=== PATIENT | male | born 1980 | race American Indian/Alaskan Native ===

== ENCOUNTER 2019-02-21 12:53 | Inpatient (IN) | payer OTHER ==
--- NOTE | 2019-02-21 13:14 | Event Note ---
ED Screening Note Date of service: 02/21/19 Time: 13:12 ED Screening Note: 39 y/o male comes in for RLQ pain and tenderness. This initial assessment/diagnostic orders/clinical plan/treatment(s) is/are subject to change based on patients health status, clinical progression and re- assessment by fellow clinical providers in the ED. Further treatment and workup at subsequent clinical providers discretion. Patient/guardian urged not to elope from the ED as their condition may be serious if not clinically assessed and managed. Initial orders include:
[2019-02-21 13:30] LABS: Basophils # (Auto) 0.1 K/mm3 (0.0-0.1); Basophils % (Auto) 0.9 % (0.0-1.8); Eosinophils # (Auto) 0.2 K/mm3 (0.0-0.4); Eosinophils % (Auto) 2.5 % (0.0-4.3); Hematocrit 40.8 % (35.5-45.6); Lymphocytes # (Auto) 1.5 K/mm3 (1.2-5.4); Lymphocytes % (Auto) 16.8 % (13.4-35.0); Mean Corpuscular HGB Conc 34 % (32-34); Mean Corpuscular Volume 83 fl (84-94); Monocytes # (Auto) 1.1 K/mm3 (0.0-0.8); Monocytes % (Auto) 12.8 % (0.0-7.3); Platelet Count 239 K/mm3 (140-440); Red Blood Count 4.93 M/mm3 (3.65-5.03); Red Cell Distribution Width 13.9 % (13.2-15.2)
[2019-02-21 13:38] LABS: Bilirubin,Urine NEG (Negative); Blood,Urine NEG (Negative); Color,Urine Yellow (Yellow); Mucus,Urine FEW /HPF; Protein,Urine <15 mg/dL mg/dL (Negative); Urobilinogen,Urine < 2.0 mg/dL (<2.0)
[2019-02-21 13:53] LABS: Alanine Aminotransferase 20 units/L (7-56); Albumin 4.2 g/dL (3.9-5); BUN/Creatinine Ratio 12; Blood Urea Nitrogen 11 mg/dL (9-20); Calcium 8.8 mg/dL (8.4-10.2); Hemolysis Index 23
--- NOTE | 2019-02-21 16:38 | Cat Scan Report ---
CT ABDOMEN AND PELVIS WITH CONTRAST INDICATION / CLINICAL INFORMATION: Right lower quadrant pain. TECHNIQUE: Axial CT images were obtained through the abdomen and pelvis after 100 mL Omnipaque [address] scans at this location are performed using CT dose reduction for ALARA by means of automated exposure control. COMPARISON: None available. FINDINGS: LOWER CHEST: No significant abnormality. LIVER: No significant abnormality. GALLBLADDER: No significant abnormality. BILE DUCTS: No significant abnormality. PANCREAS: No significant abnormality. SPLEEN: No significant abnormality. ADRENALS: No significant abnormality. RIGHT KIDNEY and URETER: No significant abnormality. LEFT KIDNEY and URETER: No significant abnormality. STOMACH and SMALL BOWEL: No significant abnormality. COLON: No significant abnormality. APPENDIX: Markedly dilated appendix with periappendiceal inflammatory stranding and fluid. At the tip , there is a thick-walled fluid collection with diameter 1.6 cm suggestive of contained perforation/a bscess. The more proximal appendix measures 1.2 cm. No extension of the process into the right psoas muscle. A few mildly prominent, reactive lymph nodes are seen in the area. No free gas is seen. LYMPH NODES: Reactive nodes in the right lower quadrant. No other lymphadenopathy. AORTA and ARTERIES: No significant abnormality. IVC and VEINS: No significant abnormality. URINARY BLADDER: No significant abnormality. REPRODUCTIVE ORGANS: No significant abnormality. ADDITIONAL FINDINGS: None. SKELETAL SYSTEM: No significant abnormality. IMPRESSION: 1. Acute, complicated appendicitis with contained perforation/abscess at the tip. The loculated fluid collection measures 1.6 cm in diameter. There is adjacent small volume of free fluid in the right si de of the pelvis. Signer Name: Beau Rubio MD Signed: 02/21/2019 4:34 PM Workstation Name: [id number]
[2019-02-21] MEDS ORDERED: ZOSYN/NS 4.5GM/100ML 4.5 GM/100 ML VIAL IV ONE (16:43)
[2019-02-21] MEDS ORDERED: NACL 0.9% 1000 ML 1,000 ML IV ONE (16:43)
[2019-02-21] MEDS ORDERED: MORPHINE IV ONE (16:43)
[2019-02-21] MEDS ORDERED: ZOFRAN IV ONE (16:44)
--- NOTE | 2019-02-21 16:50 | Emergency Department Report ---
ED Abdominal Pain HPI - General Chief Complaint: Abdominal Pain Stated Complaint: ABD PAIN Time Seen by Provider: 02/21/19 14:00 Source: patient Mode of arrival: Ambulatory Limitations: No Limitations - History of Present Illness Initial Comments: 39-year-old -[place] male presents to the ED complaining of right lower quadrant pain for the past 2 days. Symptoms started while at rest. He stated that his abdominal pain of been constant since onset and he rates it as severe in severity. Pain is sharp, 10 out of 10, associated with nausea but no vomiting. Symptoms are improved with resting, and exacerbated by eating. Denies any similar symptoms in the past. Denies any significant past medical history. MD Complaint: abdominal pain Onset/Timin -: Gradual, days(s) Location: RLQ Radiation: none Migration to: no migration Severity scale (0 -10): 10 Quality: sharp Consistency: constant Improves With: nothing Worsens With: eating Associated Symptoms: nausea - Related Data Home Medications Medication Instructions Recorded Confirmed Last Taken No Known Home Medications [No 02/21/19 02/21/19 Unknown Reported Home Medications] Allergies Allergy/AdvReac Type Severity Reaction Status Date / Time No Known Allergies Allergy Unverified 02/21/19 12:54 ED Review of Systems ROS: Stated complaint: ABD PAIN Other details as noted in HPI Comment: All other systems reviewed and negative Constitutional: denies: see HPI, chills ENT: denies: ear pain Cardiovascular: denies: chest pain Gastrointestinal: abdominal pain, nausea Genitourinary: denies: urgency ED Past Medical Hx - Past Medical History Previous Medical History?: Yes Additional medical history: Gout - Surgical History Past Surgical History?: No - Family History Family history: no significant - Social History Smoking Status: Never Smoker Substance Use Type: None - Medications Home Medications: Home Medications Medication Instructions Recorded Confirmed Last Taken Type No Known Home Medications [No 02/21/19 02/21/19 Unknown History Reported Home Medications] ED Physical Exam - General Limitations: No Limitations General appearance: alert, in no apparent distress - Head Head exam: Present: atraumatic, normocephalic - Eye Eye exam: Present: normal appearance, PERRL, EOMI Pupils: Present: normal accommodation - ENT ENT exam: Present: normal exam, normal orophraynx - Neck Neck exam: Present: normal inspection - Respiratory Respiratory exam: Present: normal lung sounds bilaterally - Cardiovascular Cardiovascular Exam: Present: regular rate, normal rhythm - GI/Abdominal GI/Abdominal exam: Present: soft, tenderness (right lower quadrant) - Extremities Exam Extremities exam: Present: normal inspection ED Course Vital Signs 02/21/19 13:12 Temperature 98.5 F Pulse Rate 78 Respiratory 16 Rate Blood Pressure 136/90 O2 Sat by Pulse 98 Oximetry ED Medical Decision Making - Lab Data Result diagrams: 02/21/19 13:18 02/21/19 13:18 - Medical Decision Making 39-year-old -[place] male presents to the ED complaining of right lower quadrant pain for the past 2 days. Symptoms started while at rest. He stated that his abdominal pain of been constant since onset and he rates it as severe in severity. Pain is sharp, 10 out of 10, associated with nausea but no vomiting. Symptoms are improved with resting, and exacerbated by eating. Denies any similar symptoms in the past. Denies any significant past medical history. CT showed appendicitis, surgery consulted, recommended, iv antibiotics, hospitalist admit, npo, will follow. - Differential Diagnosis appendicitis, diverticulitis, abscess, colitis. Critical care attestation.: If time is entered above; I have spent that time in minutes in the direct care of this critically ill patient, excluding procedure time. ED Disposition Clinical Impression: Acute appendicitis with appendiceal abscess Disposition: OP ADMIT IP TO THIS HOSP Is pt being admited?: Yes Does the pt Need Aspirin: No Condition: Stable Referrals: DOMINGO BERRY MD [Primary Care Provider] - 3-5 Days
--- NOTE | 2019-02-21 17:11 | History and Physical Report ---
History of Present Illness Chief complaint: My stomach hurts History of present illness: 39 YO Male with Gout presents to ED for evaluation. Pt states that he has experienced right sided abdominal pain over the past 2 months with worsening and persistent symptoms over the past 3 days. Pt states that pain is currently 10/10, localized to the RLQ, constant, worsened with meals, associated with nausea, worsened with movement, relieved with nonmovement. Pt transported to [facility] via private vehicle. Pt seen and evaluated in ED and underwent CT Abdomen/Pelvis and was found to have Appendicitis/Abscess. Surgery team consulted. Pt admitted to surgical floor. Pt denies fever, chills, CP, Palpitations, NVD, Trauma, BRBPR, Unintentional weight loss, night sweats, skin rash, or recent ill contacts. No prior admission for review. No listed medication for reconciliation at time of admission. Past History Past Medical History: other (gout) Past Surgical History: No surgical history, Other (reviewed) Social history: single Family history: no significant family history (reviewed) Medications and Allergies Allergies Allergy/AdvReac Type Severity Reaction Status Date / Time No Known Allergies Allergy Unverified 02/21/19 12:54 Home Medications Medication Instructions Recorded Confirmed Last Taken Type No Known Home Medications [No 02/21/19 02/21/19 Unknown History Reported Home Medications] Active Meds: Active Medications Piperacillin Sod/Tazobactam Sod (Zosyn/Ns 4.5gm/100ml) 4.5 gm in 100 mls @ 200 mls/hr IV ONCE ONE Stop: 02/21/19 17:12 Sodium Chloride (Nacl 0.9% 1000 Ml) 1,000 mls @ 999 mls/hr IV BOLUS ONE Stop: 02/21/19 17:43 Review of Systems Constitutional: no weight loss, no weight gain, no fever, no chills Ears, nose, mouth and throat: no ear pain, no ear discharge, no decreased hearing, no nose pain, no nasal congestion, no nasal discharge Cardiovascular: no chest pain, no orthopnea, no palpitations, no rapid/irregular heart beat, no edema Gastrointestinal: abdominal pain, nausea, no diarrhea, no constipation, no change in bowel habits, no hematemesis, no BRBPR, no hematochezia Genitourinary Male: no hematuria, no flank pain, no discharge Rectal: no pain, no incontinence, no bleeding Musculoskeletal: no neck stiffness, no neck pain, no shooting arm pain, no arm numbness/tingling, no shooting leg pain Integumentary: no rash, no pruritis, no redness, no sores, no wounds, no jaundice Neurological: no transient paralysis, no paralysis, no weakness, no parathesias, no numbness, no seizures, no tremors Psychiatric: no anxiety, no memory loss, no change in sleep habits, no sleep di sturbances, no insomnia, no hypersomnia, no suicidal ideation Endocrine: no cold intolerance, no heat intolerance, no polyphagia, no excessive thirst, no polydipsia, no polyuria, no nocturia Hematologic/Lymphatic: no easy bruising, no lymphadenopathy, no lymphedema Allergic/Immunologic: no urticaria, no allergic rhinitis, no wheezing, no persistent infections, no anaphylaxis, no angioedema Exam - Constitutional Vitals: Temp Pulse Resp BP Pulse Ox 98.5 F 78 16 136/90 98 02/21/19 13:12 02/21/19 13:12 02/21/19 13:12 02/21/19 13:12 02/21/19 13:12 General appearance: Present: no acute distress, well-nourished - EENT Eyes: Present: PERRL ENT: hearing intact, clear oral mucosa - Neck Neck: Present: supple, normal ROM - Respiratory Respiratory effort: normal Respiratory: bilateral: CTA - Cardiovascular Heart Sounds: Present: S1 & S2. Absent: rub, click - Extremities Extremities: pulses symmetrical, No edema Peripheral Pulses: within normal limits - Abdominal General gastrointestinal: Present: soft, tender, normal bowel sounds. Absent: hepatomegaly, splenomegaly Male genitourinary: Present: normal - Integumentary Integumentary: Present: clear, warm, dry - Musculoskeletal Musculoskeletal: gait normal, strength equal bilaterally - Psychiatric Psychiatric: appropriate mood/affect, intact judgment & insight - Neurologic Neurologic: CNII-XII intact, moves all extremities Results - Labs CBC & Chem 7: 02/21/19 13:18 02/21/19 13:18 Labs: Abnormal lab results 02/21/19 02/21/19 Range/Units 13:18 13:18 MCV 83 L (84-94) fl [place] % (Auto) 12.8 H (0.0-7.3) % [place] # 1.1 H (0.0-0.8) K/mm3 Glucose 102 H (75-100) mg/dL Assessment and Plan - Patient Problems (1) Acute appendicitis with appendiceal abscess Current Visit: Yes Status: Acute Plan to address problem: CT Abdomen pelvis, bowel rest, Nil per os overnight. Surgery consulted, serial abdominal exam, Iv antibiotic therapy, (2) Gout Current Visit: Yes Status: Acute Qualifiers: Laterality: unspecified laterality Plan to address problem: pain control, IVF resuscitation , supportive care. (3) DVT prophylaxis Current Visit: Yes Status: Acute Plan to address problem: SCD to BLE while in bed,
[2019-02-21] MEDS ORDERED: TYLENOL PO PRN (17:12)
[2019-02-21] MEDS ORDERED: PROVENTIL IH PRN (17:12)
[2019-02-21] MEDS ORDERED: SODIUM CHLORIDE FLUSH SYRINGE 10 ML IV PRN (17:12)
[2019-02-21] MEDS: MORPHINE IV PRN (19:24)
[2019-02-21] MEDS: ZOFRAN IV PRN (19:24)
[2019-02-21] MEDS: NACL 0.9% 1000 ML 1,000 ML IV SCH (19:31)
--- NOTE | 2019-02-21 19:44 | Progress Note ---
Assessment and Plan Full consult dictated: 39 y/o healthy male 2 mo hx of "on & off" RLQ abd pain. neg N or V Abd - RLQ tenderness with mild guarding CT - perf appendix with distal abscess. imp as above recent ruptured appendicitis with abscess formation rec NPO IVF IV antibiotics IR eval for possible CT guided drainage. will follow Chief complaint: My stomach hurts History of present illness: 39 YO Male with Gout presents to ED for evaluation. Pt states that he has experienced right sided abdominal pain over the past 2 months with worsening and persistent symptoms over the past 3 days. Pt states that pain is currently 10/10, localized to the RLQ, constant, worsened with meals, associated with nausea, worsened with movement, relieved with nonmovement. Pt transported to [facility] via private vehicle. Pt seen and evaluated in ED and underwent CT Abdomen/Pelvis and was found to have Appendicitis/Abscess. Surgery team consulted. Pt admitted to surgical floor. Pt denies fever, chills, CP, Palpitations, NVD, Trauma, BRBPR, Unintentional weight loss, night sweats, skin rash, or recent ill contacts. No prior admission for review. No listed medication for reconciliation at time of admission. Past History Past Medical History: other (gout) Past Surgical History: No surgical history, Other (reviewed) Social history: single Family history: no significant family history (reviewed) Selected Entries 02/21/19 02/21/19 02/21/19 18:36 18:41 19:24 Temperature 98.4 F Pulse Rate 76 Respiratory 18 Rate Blood Pressure 142/85 [Right] Laboratory Tests 02/21/19 13:18 WBC 8.7 Hgb 14.0 Hct 40.8 Objective Vital Signs - 12hr 02/21/19 02/21/19 02/21/19 13:12 17:56 17:57 Temperature 98.5 F 99.6 F Pulse Rate 78 76 Respiratory 16 18 18 Rate Blood Pressure 136/90 Blood Pressure 137/90 [Right] O2 Sat by Pulse 98 97 97 Oximetry 02/21/19 02/21/19 02/21/19 18:36 18:41 19:24 Temperature 98.4 F Pulse Rate 78 76 Respiratory 18 18 Rate Blood Pressure Blood Pressure 142/85 [Right] O2 Sat by Pulse 98 Oximetry - Labs 02/21/19 13:18 02/21/19 13:18 Diabetes panel 02/21/19 Range/Units 13:18 Sodium 141 (137-145) mmol/L Potassium 3.9 (3.6-5.0) mmol/L Chloride 103.1 (98-107) mmol/L Carbon Dioxide 27 (22-30) mmol/L BUN 11 (9-20) mg/dL Creatinine 0.9 (0.8-1.5) mg/dL Glucose 102 H (75-100) mg/dL Calcium 8.8 (8.4-10.2) mg/dL AST 17 (5-40) units/L ALT 20 (7-56) units/L Alkaline Phosphatase 55 (35-129) units/L Total Protein 7.6 (6.3-8.2) g/dL Albumin 4.2 (3.9-5) g/dL Calcium panel 02/21/19 Range/Units 13:18 Calcium 8.8 (8.4-10.2) mg/dL Albumin 4.2 (3.9-5) g/dL Pituitary panel 02/21/19 Range/Units 13:18 Sodium 141 (137-145) mmol/L Potassium 3.9 (3.6-5.0) mmol/L Chloride 103.1 (98-107) mmol/L Carbon Dioxide 27 (22-30) mmol/L BUN 11 (9-20) mg/dL Creatinine 0.9 (0.8-1.5) mg/dL Glucose 102 H (75-100) mg/dL Calcium 8.8 (8.4-10.2) mg/dL Adrenal panel 02/21/19 Range/Units 13:18 Sodium 141 (137-145) mmol/L Potassium 3.9 (3.6-5.0) mmol/L Chloride 103.1 (98-107) mmol/L Carbon Dioxide 27 (22-30) mmol/L BUN 11 (9-20) mg/dL Creatinine 0.9 (0.8-1.5) mg/dL Glucose 102 H (75-100) mg/dL Calcium 8.8 (8.4-10.2) mg/dL Total Bilirubin 0.40 (0.1-1.2) mg/dL AST 17 (5-40) units/L ALT 20 (7-56) units/L Alkaline Phosphatase 55 (35-129) units/L Total Protein 7.6 (6.3-8.2) g/dL Albumin 4.2 (3.9-5) g/dL
[2019-02-21] MEDS: PEPCID IV SCH (22:00)
[2019-02-21] MEDS: FLAGYL 500 MG/100 ML 500 MG/100 ML BAG IV SCH (22:00)
[2019-02-21] MEDS: ZOSYN/NS 3.375GM/50ML 3.375 GM/50 ML BAG IV SCH (22:00)
[2019-02-21] MEDS: SODIUM CHLORIDE FLUSH SYRINGE 10 ML IV SCH (22:01)
--- NOTE | 2019-02-22 01:47 | Consultation ---
REASON FOR CONSULTATION: Rule out appendicitis. HISTORY OF PRESENT ILLNESS: The patient is a 39-year-old gentleman who was admitted to the hospital with chief complaint of right lower quadrant abdominal pain, which he describes as " Denies any nausea or vomiting. PAST MEDICAL HISTORY: Pertinent for gout. PAST SURGICAL HISTORY: Negative. ALLERGIES: No known allergies. MEDICATIONS: No medications. FAMILY HISTORY: Negative. SOCIAL HISTORY: Occasional ethanol intake. Denies any smoking. REVIEW OF SYSTEMS: Noncontributory. PHYSICAL EXAMINATION: GENERAL: At this time reveals the patient to be awake, alert, cooperative, in mild discomfort, but no acute distress. VITAL SIGNS: Shown to be afebrile with a temperature of 98.4, blood pressure is 142/85, pulse of 76, respirations of 18. ABDOMEN: Examination of the abdomen reveals it to be soft. There is mild right localized tenderness with mild guarding. Bowel sounds are hypoactive. LABORATORY DATA: Lab work at present includes a CBC, which shows a white count of 8.7, H and H is 14 and 40. Electrolytes are all within normal limits. LFTs are also within normal limits. A CT scan of the abdomen has been performed, which reveals a perforated appendix with localized distal tip abscess. There appears to be a 1.6 cm loculated fluid collection at the site of described abscess. IMPRESSION: At this time is that of a healthy 39-year-old gentleman with a recent ruptured appendicitis with a walled off abscess formation. RECOMMENDATIONS: At this time would be to keep the patient n.p.o. and IV fluid hydration and continue IV antibiotics as you are doing. We will monitor clinically and follow closely with you. Also, we will consult Interventional Radiology to evaluate for possible CT-guided drainage of the purulent fluid collection. Thank you very much for consultation. JOB# [id number] FP/NTS
[2019-02-22] MEDS: MORPHINE IV PRN (03:57)
[2019-02-22 05:30] LABS: Basophils % (Auto) 0.4 % (0.0-1.8); Eosinophils # (Auto) 0.1 K/mm3 (0.0-0.4); Eosinophils % (Auto) 1.8 % (0.0-4.3); Hematocrit 39.2 % (35.5-45.6); Hemoglobin 13.3 gm/dl (11.8-15.2); Lymphocytes # (Auto) 1.2 K/mm3 (1.2-5.4); Lymphocytes % (Auto) 15.8 % (13.4-35.0); Mean Corpuscular HGB Conc 34 % (32-34); Mean Corpuscular Volume 83 fl (84-94); Monocytes % (Auto) 12.8 % (0.0-7.3); Platelet Count 227 K/mm3 (140-440); Red Blood Count 4.73 M/mm3 (3.65-5.03); Red Cell Distribution Width 14.2 % (13.2-15.2)
[2019-02-22 05:53] LABS: Alanine Aminotransferase 17 units/L (7-56); Albumin 3.8 g/dL (3.9-5); Calcium 8.5 mg/dL (8.4-10.2); Hemolysis Index 3
[2019-02-22 06:18] LABS: BUN/Creatinine Ratio 8; Blood Urea Nitrogen 9 mg/dL (9-20)
[2019-02-22] MEDS: NACL 0.9% 1000 ML 1,000 ML IV SCH ×2 (06:22→18:39)
[2019-02-22] MEDS: FLAGYL 500 MG/100 ML 500 MG/100 ML BAG IV SCH ×3 (06:23→22:17)
[2019-02-22] MEDS: ZOSYN/NS 3.375GM/50ML 3.375 GM/50 ML BAG IV SCH ×3 (07:01→21:19)
[2019-02-22] MEDS: PEPCID IV SCH ×2 (09:38→21:19)
[2019-02-22] MEDS: SODIUM CHLORIDE FLUSH SYRINGE 10 ML IV SCH ×2 (09:38→21:19)
--- NOTE | 2019-02-22 10:23 | Progress Note ---
Assessment and Plan Pt feeling better. Ambulating in room and speaking on phone. Abd less tender wbc 7.8 stable awaiting IR eval continue present care Selected Entries 02/22/19 07:45 Temperature 99.2 F Pulse Rate 69 Respiratory 18 Rate Blood Pressure 95/50 Laboratory Tests 02/21/19 02/22/19 13:18 04:41 WBC 8.7 7.8 Hgb 13.3 Objective Vital Signs - 12hr 02/21/19 02/22/19 02/22/19 23:32 03:35 03:57 Temperature 97.8 F 99.2 F Pulse Rate 76 88 Respiratory 18 19 18 Rate Blood Pressure 112/61 106/57 O2 Sat by Pulse 95 93 Oximetry 02/22/19 07:45 Temperature 99.2 F Pulse Rate 69 Respiratory 18 Rate Blood Pressure 95/50 O2 Sat by Pulse 95 Oximetry - Labs 02/22/19 04:41 02/22/19 04:41 Diabetes panel 02/21/19 02/22/19 Range/Units 13:18 04:41 Sodium 141 146 H (137-145) mmol/L Potassium 3.9 4.0 (3.6-5.0) mmol/L Chloride 103.1 106.2 (98-107) mmol/L Carbon Dioxide 27 29 (22-30) mmol/L BUN 11 9 (9-20) mg/dL Creatinine 0.9 1.2 (0.8-1.5) mg/dL Glucose 102 H 106 H (75-100) mg/dL Calcium 8.8 8.5 (8.4-10.2) mg/dL AST 17 15 (5-40) units/L ALT 20 17 (7-56) units/L Alkaline Phosphatase 55 53 (35-129) units/L Total Protein 7.6 7.2 (6.3-8.2) g/dL Albumin 4.2 3.8 L (3.9-5) g/dL Calcium panel 02/21/19 02/22/19 Range/Units 13:18 04:41 Calcium 8.8 8.5 (8.4-10.2) mg/dL Albumin 4.2 3.8 L (3.9-5) g/dL Pituitary panel 02/21/19 02/22/19 Range/Units 13:18 04:41 Sodium 141 146 H (137-145) mmol/L Potassium 3.9 4.0 (3.6-5.0) mmol/L Chloride 103.1 106.2 (98-107) mmol/L Carbon Dioxide 27 29 (22-30) mmol/L BUN 11 9 (9-20) mg/dL Creatinine 0.9 1.2 (0.8-1.5) mg/dL Glucose 102 H 106 H (75-100) mg/dL Calcium 8.8 8.5 (8.4-10.2) mg/dL Adrenal panel 02/21/19 02/22/19 Range/Units 13:18 04:41 Sodium 141 146 H (137-145) mmol/L Potassium 3.9 4.0 (3.6-5.0) mmol/L Chloride 103.1 106.2 (98-107) mmol/L Carbon Dioxide 27 29 (22-30) mmol/L BUN 11 9 (9-20) mg/dL Creatinine 0.9 1.2 (0.8-1.5) mg/dL Glucose 102 H 106 H (75-100) mg/dL Calcium 8.8 8.5 (8.4-10.2) mg/dL Total Bilirubin 0.40 0.60 (0.1-1.2) mg/dL AST 17 15 (5-40) units/L ALT 20 17 (7-56) units/L Alkaline Phosphatase 55 53 (35-129) units/L Total Protein 7.6 7.2 (6.3-8.2) g/dL Albumin 4.2 3.8 L (3.9-5) g/dL
--- NOTE | 2019-02-22 10:55 | Consultation ---
History of Present Illness - Reason for Consult Consult date: 02/22/19 Appendicitis - History of Present Illness Patient is a 39-year-old male with a several month history of intermittent right lower quadrant abdominal pain who presents with worsening abdominal pain. CT scan was performed which demonstrates an edematous appendix with fluid either contained within the tip of the appendix or just outside. There is very appendiceal stranding consistent with acute appendicitis. The small fluid collection measures approximately 1.0 cm x 0.4 cm. Patient subjectively feels better since admission. He is currently receiving antibiotics. Past History Past Medical History: other (gout) Past Surgical History: No surgical history, Other (reviewed) Social history: single Family history: no significant family history (reviewed) Medications and Allergies Allergies Allergy/AdvReac Type Severity Reaction Status Date / Time No Known Allergies Allergy Unverified 02/21/19 12:54 Home Medications Medication Instructions Recorded Confirmed Last Taken Type No Known Home Medications [No 02/21/19 02/21/19 Unknown History Reported Home Medications] Active Meds: Active Medications Acetaminophen (Tylenol) 650 mg PO Q4H PRN PRN Reason: Pain MILD(1-3)/Fever >100.5/KAP[place]AN Albuterol (Proventil) 2.5 mg IH Q4HRT PRN PRN Reason: Shortness Of Breath Famotidine (Pepcid) 10 mg IV BID [facility] Last Admin: 02/22/19 09:38 Dose: 10 mg Documented by: Sodium Chloride (Nacl 0.9% 1000 Ml) 1,000 mls @ 125 mls/hr IV DIRECT TUYET Last Admin: 02/22/19 06:22 Dose: 125 mls/hr Documented by: Metronidazole (Flagyl 500 Mg/100 Ml) 500 mg in 100 mls @ 100 mls/hr IV Q8HR [facility]; Protocol Last Admin: 02/22/19 06:23 Dose: 100 mls/hr Documented by: Piperacillin Sod/Tazobactam Sod (Zosyn/Ns 3.375gm/50ml) 3.375 gm in 50 mls @ 100 mls/hr IV Q8HR TUYET Morphine Sulfate (Morphine) 2 mg IV Q4H PRN PRN Reason: Pain, Moderate (4-6) Last Admin: 02/22/19 03:57 Dose: 2 mg Documented by: Ondansetron HCl (Zofran) 4 mg IV Q8H PRN PRN Reason: Nausea And Vomiting Last Admin: 02/21/19 19:24 Dose: 4 mg Documented by: Sodium Chloride (Sodium Chloride Flush Syringe 10 Ml) 10 ml IV BID TUYET Last Admin: 02/22/19 09:38 Dose: 10 ml Documented by: Sodium Chloride (Sodium Chloride Flush Syringe 10 Ml) 10 ml IV PRN PRN PRN Reason: LINE FLUSH Review of Systems All systems: negative Exam - Constitutional Vitals: Temp Pulse Resp BP Pulse Ox 99.2 F 69 18 95/50 95 02/22/19 07:45 02/22/19 07:45 02/22/19 07:45 02/22/19 07:45 02/22/19 07:45 General appearance: Present: no acute distress - EENT Eyes: Present: EOM intact ENT: hearing intact - Neck Neck: Present: supple - Respiratory Respiratory effort: normal - Extremities Extremities: Full ROM - Abdominal General gastrointestinal: Present: distended Male genitourinary: Present: deferred - Rectal Rectal Exam: deferred - Psychiatric Psychiatric: appropriate mood/affect, cooperative Results - Labs CBC & Chem 7: 02/22/19 04:41 02/22/19 04:41 Labs: Abnormal lab results 02/21/19 02/21/19 02/22/19 Range/Units 13:18 13:18 04:41 MCV 83 L 83 L (84-94) fl [place] % (Auto) 12.8 H 12.8 H (0.0-7.3) % [place] # 1.1 H 1.0 H (0.0-0.8) K/mm3 Sodium (137-145) mmol/L Glucose 102 H (75-100) mg/dL Albumin (3.9-5) g/dL 02/22/19 Range/Units 04:41 MCV (84-94) fl [place] % (Auto) (0.0-7.3) % [place] # (0.0-0.8) K/mm3 Sodium 146 H (137-145) mmol/L Glucose 106 H (75-100) mg/dL Albumin 3.8 L (3.9-5) g/dL - Imaging and Cardiology CT scan - abdomen: report reviewed, image reviewed Assessment and Plan Patient with acute appendicitis with fluid either at the tip of the appendix or just outside. This fluid collection is too small for drainage. The patient will need to continue on antibiotics with a repeat CT scan in 3 days to document either resolution of this fluid collection or enlargement.
--- NOTE | 2019-02-22 13:52 | Progress Note ---
Assessment and Plan (1) Acute appendicitis with appendiceal abscess Current Visit: Yes Status: Acute Plan to address problem: CT Abdomen pelvis, bowel rest, Nil per os overnight. Surgery consulted, serial abdominal exam, Iv antibiotic therapy, Patient with acute appendicitis with fluid either at the tip of the appendix or just outside. This fluid collection is too small for drainage. The patient will need to continue on antibiotics with a repeat CT scan in 3 days to document either resolution of this fluid collection or enlargement. (2) Gout Current Visit: Yes Status: Acute Qualifiers: Laterality: unspecified laterality Plan to address problem: pain control, IVF resuscitation , supportive care. (3) DVT prophylaxis Current Visit: Yes Status: Acute Plan to address problem: SCD to BLE while in bed, Subjective Date of service: 02/22/19 Principal diagnosis: acute appendicitis Interval history: 39 YO Male with Gout presents to ED for evaluation. Pt states that he has experienced right sided abdominal pain over the past 2 months with worsening and persistent symptoms over the past 3 days. Pt states that pain is currently 10/10, localized to the RLQ, constant, worsened with meals, associated with nausea, worsened with movement, relieved with nonmovement. Patient diagnosed with Acute appendicitis Objective - Constitutional Vitals: Vital Signs - 12hr 02/22/19 02/22/19 02/22/19 03:35 03:57 07:45 Temperature 99.2 F 99.2 F Pulse Rate 88 69 Respiratory 19 18 18 Rate Blood Pressure 106/57 95/50 Blood Pressure [Right] O2 Sat by Pulse 93 95 Oximetry 02/22/19 12:00 Temperature 97.8 F Pulse Rate 80 Respiratory 18 Rate Blood Pressure Blood Pressure 140/76 [Right] O2 Sat by Pulse 98 Oximetry - Labs CBC & Chem 7: 02/22/19 04:41 02/22/19 04:41 Labs: Abnormal lab results 02/21/19 02/22/19 02/22/19 Range/Units 13:18 04:41 04:41 MCV 83 L (84-94) fl [place] % (Auto) 12.8 H (0.0-7.3) % [place] # 1.0 H (0.0-0.8) K/mm3 Sodium 146 H (137-145) mmol/L Glucose 102 H 106 H (75-100) mg/dL Albumin 3.8 L (3.9-5) g/dL
[2019-02-23] MEDS: NACL 0.9% 1000 ML 1,000 ML IV SCH ×2 (03:44→21:58)
[2019-02-23] MEDS: ZOSYN/NS 3.375GM/50ML 3.375 GM/50 ML BAG IV SCH ×3 (05:00→21:59)
[2019-02-23] MEDS: FLAGYL 500 MG/100 ML 500 MG/100 ML BAG IV SCH ×3 (05:51→21:58)
[2019-02-23] MEDS: PEPCID IV SCH ×2 (10:54→22:00)
[2019-02-23] MEDS: SODIUM CHLORIDE FLUSH SYRINGE 10 ML IV SCH ×2 (10:57→23:46)
--- NOTE | 2019-02-23 11:58 | Progress Note ---
Assessment and Plan Pt feeling better. minimal pain. hungry Abd soft, non tender at present. IR candace appreciated clilnically stable attempt cl liq diet continue IV antibiotics f/u CT with po contrast on Monday Selected Entries 02/23/19 02/23/19 06:59 09:30 Temperature 98.3 F Pulse Rate 63 O2 Sat by Pulse 96 Oximetry Blood Pressure 143/89 Objective Vital Signs - 12hr 02/23/19 02/23/19 02/23/19 00:00 03:48 06:59 Temperature 98.0 F 97.9 F 98.3 F Pulse Rate 68 68 63 Respiratory 18 18 16 Rate Blood Pressure 108/73 123/81 143/89 O2 Sat by Pulse 92 95 98 Oximetry 02/23/19 09:30 Temperature Pulse Rate Respiratory Rate Blood Pressure O2 Sat by Pulse 96 Oximetry - Labs 02/22/19 04:41 02/22/19 04:41
[2019-02-23] MEDS ORDERED: NORCO 5/325 PO PRN (11:59)
--- NOTE | 2019-02-23 16:28 | Progress Note ---
Assessment and Plan (1) Acute appendicitis with appendiceal abscess Current Visit: Yes Status: Acute Plan to address problem: CT Abdomen pelvis, bowel rest, Nil per os overnight. Surgery consulted, serial abdominal exam, Iv antibiotic therapy, Patient with acute appendicitis with fluid either at the tip of the appendix or just outside. This fluid collection is too small for drainage. The patient will need to continue on antibiotics with a repeat CT scan in 3 days to document either resolution of this fluid collection or enlargement. (2) Gout Current Visit: Yes Status: Acute Qualifiers: Laterality: unspecified laterality Plan to address problem: pain control, IVF resuscitation , supportive care. (3) DVT prophylaxis Current Visit: Yes Status: Acute Plan to address problem: SCD to BLE while in bed, Subjective Date of service: 02/23/19 Principal diagnosis: acute appendicitis Interval history: 39 YO Male with Gout presents to ED for evaluation. Pt states that he has experienced right sided abdominal pain over the past 2 months with worsening and persistent symptoms over the past 3 days. Pt states that pain is currently 10/10, localized to the RLQ, constant, worsened with meals, associated with nausea, worsened with movement, relieved with nonmovement. Patient diagnosed with Acute appendicitis Objective - Constitutional Vitals: Vital Signs - 12hr 02/23/19 02/23/19 02/23/19 06:59 09:30 11:02 Temperature 98.3 F 98.0 F Pulse Rate 63 66 Respiratory 16 20 Rate Blood Pressure 143/89 128/75 O2 Sat by Pulse 98 96 98 Oximetry General appearance: Present: no acute distress, well-nourished - EENT Eyes: PERRL, EOM intact ENT: hearing intact, clear oral mucosa Ears: bilateral: normal - Neck Neck: supple, normal ROM - Respiratory Respiratory effort: normal Respiratory: bilateral: CTA - Breasts Breasts: normal - Cardiovascular Rhythm: regular Heart Sounds: Present: S1 & S2. Absent: gallop, rub Extremities: pulses intact, No edema, normal color, Full ROM - Gastrointestinal General gastrointestinal: Present: soft, non-tender, non-distended, normal bowel sounds - Genitourinary Male genitourinary: normal - Integumentary Integumentary: clear, warm, dry - Musculoskeletal Musculoskeletal: 1, strength equal bilaterally - Neurologic Neurologic: moves all extremities - Psychiatric Psychiatric: memory intact, appropriate mood/affect, intact judgment & insight - Labs CBC & Chem 7: 07/26/19 04:41 02/22/19 04:41
[2019-02-23] MEDS: ZOFRAN IV PRN (21:59)
[2019-02-24] MEDS: ZOSYN/NS 3.375GM/50ML 3.375 GM/50 ML BAG IV SCH ×3 (06:07→21:36)
[2019-02-24] MEDS: NACL 0.9% 1000 ML 1,000 ML IV SCH ×2 (06:07→20:19)
[2019-02-24] MEDS: FLAGYL 500 MG/100 ML 500 MG/100 ML BAG IV SCH ×3 (06:08→22:31)
[2019-02-24] MEDS: PEPCID IV SCH ×3 (08:48→21:37)
--- NOTE | 2019-02-24 10:41 | Progress Note ---
Assessment and Plan Pt status quo. yue cl liq with just slight nausea this am, otherwise no incidents. denies pain Abd soft, very minimal RLQ tenderness. no guarding or rebound stable continue limiting to cl liq f/u CT with po contrast in am to reasses status of appendeceal abscess Selected Entries 02/24/19 02/24/19 04:37 08:27 Temperature 98.1 F Pulse Rate 71 Blood Pressure 139/67 Objective Vital Signs - 12hr 02/24/19 02/24/19 02/24/19 00:25 04:37 08:27 Temperature 97.5 F L 98.1 F Pulse Rate 62 64 71 Respiratory 18 18 Rate Blood Pressure 113/67 126/78 139/67 O2 Sat by Pulse 94 96 97 Oximetry - Labs 02/22/19 04:41 02/22/19 04:41
--- NOTE | 2019-02-24 12:46 | Progress Note ---
Assessment and Plan (1) Acute appendicitis with appendiceal abscess Current Visit: Yes Status: Acute Plan to address problem: Conservativve treatment Repeat CT abd tomorrow (2) Gout Current Visit: Yes Status: Acute Qualifiers: Laterality: unspecified laterality Plan to address problem: pain control, IVF resuscitation , supportive care. (3) DVT prophylaxis Current Visit: Yes Status: Acute Plan to address problem: SCD to BLE while in bed, Subjective Date of service: 02/24/19 Principal diagnosis: acute appendicitis Interval history: Sx better Objective - Constitutional Vitals: Vital Signs - 12hr 02/24/19 02/24/19 04:37 08:27 Temperature 98.1 F Pulse Rate 64 71 Respiratory 18 Rate Blood Pressure 126/78 139/67 O2 Sat by Pulse 96 97 Oximetry General appearance: Present: no acute distress, well-nourished - EENT Eyes: PERRL, EOM intact ENT: hearing intact, clear oral mucosa Ears: bilateral: normal - Neck Neck: supple, normal ROM - Respiratory Respiratory effort: normal Respiratory: bilateral: CTA - Breasts Breasts: normal - Cardiovascular Rhythm: regular Heart Sounds: Present: S1 & S2. Absent: gallop, rub Extremities: pulses intact, No edema, normal color, Full ROM - Gastrointestinal General gastrointestinal: Present: soft, non-tender, non-distended, normal bowel sounds - Genitourinary Male genitourinary: normal - Integumentary Integumentary: clear, warm, dry - Musculoskeletal Musculoskeletal: 1, strength equal bilaterally - Neurologic Neurologic: moves all extremities - Psychiatric Psychiatric: memory intact, appropriate mood/affect, intact judgment & insight - Labs CBC & Chem 7: 02/22/19 04:41 02/22/19 04:41
[2019-02-24] MEDS: SODIUM CHLORIDE FLUSH SYRINGE 10 ML IV SCH ×2 (14:54→21:37)
[2019-02-24] MEDS: ZOFRAN IV PRN (21:44)
[2019-02-25 03:15] LABS: Basophils % (Auto) 0.8 % (0.0-1.8); Eosinophils # (Auto) 0.2 K/mm3 (0.0-0.4); Eosinophils % (Auto) 3.4 % (0.0-4.3); Hematocrit 42.7 % (35.5-45.6); Hemoglobin 14.2 gm/dl (11.8-15.2); Lymphocytes # (Auto) 1.4 K/mm3 (1.2-5.4); Lymphocytes % (Auto) 23.7 % (13.4-35.0); Mean Corpuscular HGB Conc 33 % (32-34); Mean Corpuscular Volume 83 fl (84-94); Monocytes # (Auto) 0.9 K/mm3 (0.0-0.8); Monocytes % (Auto) 14.8 % (0.0-7.3); Platelet Count 252 K/mm3 (140-440); Red Blood Count 5.12 M/mm3 (3.65-5.03); Red Cell Distribution Width 13.5 % (13.2-15.2)
[2019-02-25 03:39] LABS: BUN/Creatinine Ratio 10; Blood Urea Nitrogen 10 mg/dL (9-20); Calcium 8.8 mg/dL (8.4-10.2); Hemolysis Index 5
[2019-02-25] MEDS: ZOSYN/NS 3.375GM/50ML 3.375 GM/50 ML BAG IV SCH (05:44)
[2019-02-25] MEDS: NACL 0.9% 1000 ML 1,000 ML IV SCH ×2 (05:44→16:46)
[2019-02-25] MEDS: FLAGYL 500 MG/100 ML 500 MG/100 ML BAG IV SCH ×2 (06:34→14:58)
[2019-02-25] MEDS: SODIUM CHLORIDE FLUSH SYRINGE 10 ML IV SCH ×3 (10:08→22:18)
[2019-02-25] MEDS: PEPCID IV SCH ×3 (10:08→22:18)
--- NOTE | 2019-02-25 10:40 | Cat Scan Report ---
CT ABDOMEN AND PELVIS WITH CONTRAST HISTORY: appendicitis. Right lower quadrant pain. COMPARISON: 02/21/2019 TECHNIQUE: Axial CT images were obtained through the abdomen and pelvis after 100 cc of Omnipaque 300 intravenously. Sagittal and coronal reformatted images. All CT scans at this location are performed using CT dose reduction for ALARA by means of automated exposure control. FINDINGS: CT ABDOMEN: Lung Bases: Clear. Liver: Mild diffuse fatty infiltration throughout the liver. No enlargement or mass. Biliary: No significant abnormality. Spleen: No significant abnormality. Unenlarged. Pancreas: No significant abnormality. Adrenals: No significant abnormality. Kidneys: No significant abnormality. Lymphatics: No lymphadenopathy. Vasculature: No significant abnormality. Bowel/Peritoneum: The appendix remains mildly dilated measuring up to 1.1 cm in diameter with diffuse wall thickening. Small abscess at the appendiceal tip is again noted and appears slightly decreased in size measuring 1.2 cm. Surrounding inflammatory changes and small free fluid in the pelvis have ne rosa resolved. The remaining bowel loops are unremarkable. No evidence for free air. CT PELVIS: : No significant abnormality. Osseous Structures: No significant abnormality. Additional Findings: None IMPRESSION: The appendix remains mildly dilated with diffuse wall thickening and a small abscess near the tip of the appendix. There does appear to be decreased surrounding inflammatory change and small free pelvic fluid since the previous exam. No new acute process is appreciated. Signer Name: Juno Willard Jr, MD Signed: 02/25/2019 10:36 AM Workstation Name: [id number]
--- NOTE | 2019-02-25 13:11 | Progress Note ---
Assessment and Plan Pt clinically doing well. yue cl liq Abd soft, non tender CT abd - appendiceal tip abscess and surrounding inflammation improving but still present. wbc down to 5.8 clinically stable advance to full liq diet ID eval to help outline outpt antibiotic Rx plan may advance to reg diet in am if full liq yue throughout the day. possible d/c tomorrow if solid diet yue and cleared by ID Selected Entries 02/25/19 04:17 Temperature 98.0 F Pulse Rate 63 Respiratory 20 Rate Blood Pressure 128/85 Laboratory Tests 02/25/19 03:01 WBC 5.8 Hgb 14.2 Hct 42.7 Objective Vital Signs - 12hr 02/25/19 04:17 Temperature 98.0 F Pulse Rate 63 Respiratory 20 Rate Blood Pressure 128/85 O2 Sat by Pulse 99 Oximetry - Labs 02/25/19 03:01 02/25/19 03:01 Diabetes panel 02/25/19 Range/Units 03:01 Sodium 140 (137-145) mmol/L Potassium 4.2 (3.6-5.0) mmol/L Chloride 102.2 (98-107) mmol/L Carbon Dioxide 27 (22-30) mmol/L BUN 10 (9-20) mg/dL Creatinine 1.0 (0.8-1.5) mg/dL Glucose 89 (75-100) mg/dL Calcium 8.8 (8.4-10.2) mg/dL Calcium panel 02/25/19 Range/Units 03:01 Calcium 8.8 (8.4-10.2) mg/dL Pituitary panel 02/25/19 Range/Units 03:01 Sodium 140 (137-145) mmol/L Potassium 4.2 (3.6-5.0) mmol/L Chloride 102.2 (98-107) mmol/L Carbon Dioxide 27 (22-30) mmol/L BUN 10 (9-20) mg/dL Creatinine 1.0 (0.8-1.5) mg/dL Glucose 89 (75-100) mg/dL Calcium 8.8 (8.4-10.2) mg/dL Adrenal panel 02/25/19 Range/Units 03:01 Sodium 140 (137-145) mmol/L Potassium 4.2 (3.6-5.0) mmol/L Chloride 102.2 (98-107) mmol/L Carbon Dioxide 27 (22-30) mmol/L BUN 10 (9-20) mg/dL Creatinine 1.0 (0.8-1.5) mg/dL Glucose 89 (75-100) mg/dL Calcium 8.8 (8.4-10.2) mg/dL
--- NOTE | 2019-02-25 14:29 | Consultation ---
History of Present Illness - Reason for Consult Consult date: 02/25/19 - History of Present Illness 39 yo M with PMHx of gout initially presented due to worsening abdominal pain. The pain had initially begun approximately 3 months ago and was less severe at the start, and was mainly right sided. Over the past 3 days it became very severe, localized to the RLQ and 10/10. He notes it was worse with food and had associated nausea. He otherwise denies fevers, sweats, chills. No other sick contacts at this time. Since being admitted his pain is improved, and currently is in no distress. Main complaint is hunger. CT scan on admission showed a contained appendiceal perforation with an abscess of 1.6cm at the tip with surrounding inflammation and acute complicated appendicities. A repeat CT done today shows improved inflammation with ongoing abscess. He has been afebrile since admission with a normal white count. He is currently receiving Zosyn and Flagyl. Surgery has been consulted. Potential for percutaneous drainage of the abscess. Blood cultures NGTD Past History Past Medical History: other (gout) Past Surgical History: No surgical history, Other (reviewed) Social history: single Family history: no significant family history (reviewed) Medications and Allergies Allergies Allergy/AdvReac Type Severity Reaction Status Date / Time No Known Allergies Allergy Unverified 02/21/19 12:54 Home Medications Medication Instructions Recorded Confirmed Last Taken Type No Known Home Medications [No 02/21/19 02/21/19 Unknown History Reported Home Medications] Active Meds: Active Medications Acetaminophen (Tylenol) 650 mg PO Q4H PRN PRN Reason: Pain MILD(1-3)/Fever >100.5/[place] Acetaminophen/Hydrocodone Bitart ([place] 5/325) 1 each PO Q4H PRN PRN Reason: Pain, Moderate (4-6) Albuterol (Proventil) 2.5 mg IH Q4HRT PRN PRN Reason: Shortness Of Breath Famotidine (Pepcid) 10 mg IV BID [facility] Last Admin: 02/25/19 11:54 Dose: 10 mg Documented by: Sodium Chloride (Nacl 0.9% 1000 Ml) 1,000 mls @ 125 mls/hr IV DIRECT TUYET Last Admin: 02/25/19 05:44 Dose: 125 mls/hr Documented by: Metronidazole (Flagyl 500 Mg/100 Ml) 500 mg in 100 mls @ 100 mls/hr IV Q8HR TUYET; Protocol Stop: 02/26/19 21:59 Last Admin: 02/25/19 06:34 Dose: 100 mls/hr Documented by: Piperacillin Sod/Tazobactam Sod (Zosyn/Ns 4.5gm/100ml) 4.5 gm in 100 mls @ 200 mls/hr IV Q8HR TUYET Morphine Sulfate (Morphine) 2 mg IV Q4H PRN PRN Reason: Pain, Moderate (4-6) Last Admin: 02/22/19 03:57 Dose: 2 mg Documented by: Ondansetron HCl (Zofran) 4 mg IV Q8H PRN PRN Reason: Nausea And Vomiting Last Admin: 02/24/19 21:44 Dose: 4 mg Documented by: Sodium Chloride (Sodium Chloride Flush Syringe 10 Ml) 10 ml IV BID [facility]UYET Last Admin: 02/25/19 11:55 Dose: 10 ml Documented by: Sodium Chloride (Sodium Chloride Flush Syringe 10 Ml) 10 ml IV PRN PRN PRN Reason: LINE FLUSH Review of Systems Constitutional: poor appetite, no fever, no chills, no sweats Ears, nose, mouth and throat: no decreased hearing, no sinus pressure, no sinus pain Cardiovascular: no chest pain, no palpitations, no edema Respiratory: no cough, no shortness of breath, no dyspnea on exertion Gastrointestinal: no abdominal pain, no nausea, no vomiting, no diarrhea Genitourinary Male: no dysuria, no hematuria Musculoskeletal: no redness of joints, no limitation of motion Integumentary: no rash, no pruritis Neurological: no weakness, no tingling, no syncope Hematologic/Lymphatic: no easy bruising, no lymphadenopathy Physical Examination - Physical Exam Narrative exam: Constitutional: awake, no distress, following commands Head, Ears, Nose: Normocephalic, atraumatic. External ears, nose normal Eyes: Conjunctivae/corneas clear. No icterus. No ptosis. Neck: Supple, no meningeal signs Oral: fair dentition, moist mucous membranes Cardiovascular: S1, S2 normal. Normal rhythm Respiratory: Good air entry, clear to auscultation bilaterally GI: Soft, non-tender; bowel sounds normal. No peritoneal signs Musculoskeletal: No pedal edema, Skin: No rash or abscess Hem/Lymphatic: No palpable cervical or supraclavicular nodes. No lymphangitis Psych: no agitation Neurological: Moves all extremities, no focal defects - Constitutional Vitals: Vital Signs Temp Pulse Resp BP Pulse Ox 98.0 F 63 20 128/85 99 02/25/19 04:17 02/25/19 04:17 02/25/19 04:17 02/25/19 04:17 02/25/19 04:17 Temperature -Last 24 Hours Temperature 98.0 F Temperature 98.0 F Temperature 98.3 F Temperature 98.6 F Results - Labs CBC & Chem 7: 02/25/19 03:01 02/25/19 03:01 Labs: Abnormal lab results 02/25/19 Range/Units 03:01 RBC 5.12 H (3.65-5.03) M/mm3 MCV 83 L (84-94) fl [place] % (Auto) 14.8 H (0.0-7.3) % [place] # 0.9 H (0.0-0.8) K/mm3 - Imaging and Cardiology CT scan - abdomen: image reviewed (1.6cm abscess at tip of appendix) Assessment and Plan Cultures: BCx NGTD A/P: 39 yo M with Hx of gout admitted for contained perforated appendicitis with appendiceal abscess. 1. Contained perforated appendicitis with appendiceal abscess - he is doing significantly better with antibiotics, and is no longer in pain. Can continue the pip-tazo for now. Will discontinue the metronidazole as anaerobic coverage is provided by the pip-tazo. On discharge would send home with Cipro 750mg BID PO and Augmentin 875/125mg BID to complete 2 weeks of therapy given the presence of his abscess. 2. Hx of gout Recs: continue pip-tazo 4.5g q8h stop metronidazole We appreciate this consult and will continue to follow along. MD [facility] C: [phone] O: [phone] F: [phone]
[2019-02-25] MEDS: ZOFRAN IV PRN (15:05)
--- NOTE | 2019-02-25 15:42 | Progress Note ---
Assessment and Plan (1) Acute appendicitis with appendiceal abscess Current Visit: Yes Status: Acute Plan to address problem: Conservativve treatment Possible discharge on PO abx ID consult appreciated (2) Gout Current Visit: Yes Status: Acute Qualifiers: Laterality: unspecified laterality Plan to address problem: pain control, IVF resuscitation , supportive care. (3) DVT prophylaxis Current Visit: Yes Status: Acute Plan to address problem: SCD to BLE while in bed, Subjective Date of service: 02/25/19 Principal diagnosis: acute appendicitis Interval history: Sx better Objective - Constitutional Vitals: Vital Signs - 12hr 02/25/19 04:17 Temperature 98.0 F Pulse Rate 63 Respiratory 20 Rate Blood Pressure 128/85 O2 Sat by Pulse 99 Oximetry General appearance: Present: no acute distress, well-nourished - EENT Eyes: PERRL, EOM intact ENT: hearing intact, clear oral mucosa Ears: bilateral: normal - Neck Neck: supple, normal ROM - Respiratory Respiratory effort: normal Respiratory: bilateral: CTA - Breasts Breasts: normal - Cardiovascular Rhythm: regular Heart Sounds: Present: S1 & S2. Absent: gallop, rub Extremities: pulses intact, No edema, normal color, Full ROM - Gastrointestinal General gastrointestinal: Present: soft, non-tender, non-distended, normal bowel sounds - Genitourinary Male genitourinary: normal - Integumentary Integumentary: clear, warm, dry - Musculoskeletal Musculoskeletal: 1, strength equal bilaterally - Neurologic Neurologic: moves all extremities - Psychiatric Psychiatric: memory intact, appropriate mood/affect, intact judgment & insight - Labs CBC & Chem 7: 02/25/19 03:01 02/25/19 03:01 Labs: Abnormal lab results 02/25/19 Range/Units 03:01 RBC 5.12 H (3.65-5.03) M/mm3 MCV 83 L (84-94) fl [place] % (Auto) 14.8 H (0.0-7.3) % [place] # 0.9 H (0.0-0.8) K/mm3
[2019-02-25] MEDS: ZOSYN/NS 4.5GM/100ML 4.5 GM/100 ML VIAL IV SCH ×2 (16:49→22:15)
[2019-02-26] MEDS: FLAGYL 500 MG/100 ML 500 MG/100 ML BAG IV SCH ×2 (00:04→06:42)
[2019-02-26] MEDS: ZOSYN/NS 4.5GM/100ML 4.5 GM/100 ML VIAL IV SCH (05:16)
[2019-02-26] MEDS: NACL 0.9% 1000 ML 1,000 ML IV SCH (07:33)
[2019-02-26] MEDS: PEPCID IV SCH (09:44)
[2019-02-26] MEDS: SODIUM CHLORIDE FLUSH SYRINGE 10 ML IV SCH (09:44)
--- NOTE | 2019-02-26 10:28 | Progress Note ---
Assessment and Plan Cultures: BCx NGTD A/P: 39 yo M with Hx of gout admitted for contained perforated appendicitis with appendiceal abscess. 1. Contained perforated appendicitis with appendiceal abscess - he is doing significantly better with antibiotics, and is no longer in pain. Can continue the pip-tazo for now. Will discontinue the metronidazole as anaerobic coverage is provided by the pip-tazo. On discharge would send home with Cipro 750mg BID PO and Augmentin 875/125mg BID to complete 2 weeks of therapy given the presence of his abscess. 2. Hx of gout Recs: continue pip-tazo 4.5g q8h anticipate discharge on Cipro 750mg PO Bid and Augmentin 875/125 mg PO Bid total 2 weeks ending 03-11-[address] in 2 weeks- order placed Follow-up ID clinic in 3 weeks sent to office nurse practitioner) [facility] M: [id number] O:[phone] Subjective Date of service: 02/26/19 Principal diagnosis: acute appendicitis Interval history: Patient seen and examined. Reports no pain or SOB. No fevers . Objective - Exam Narrative Exam: Constitutional: Alert. Awak. No acute distress Head, Ears, Nose: Normocephalic, atraumatic. External ears, nose normal Eyes: Conjunctivae/corneas clear. No icterus. No ptosis. Neck: Supple, no meningeal signs Oral: fair dentition, moist mucous membranes Cardiovascular: S1, S2 normal. Normal rhythm Respiratory: Good air entry, clear to auscultation bilaterally GI: Soft, non-tender; bowel sounds normal. No peritoneal signs Musculoskeletal: No pedal edema, Skin: No rash or abscess Hem/Lymphatic: No palpable cervical or supraclavicular nodes. No lymphangitis Psych: no agitation Neurological: Moves all extremities, no focal defects - Constitutional Vitals: Vital Signs Temp Pulse Resp BP Pulse Ox 98.0 F 65 18 107/64 99 02/26/19 07:16 02/26/19 07:16 02/26/19 07:16 02/26/19 07:16 02/26/19 07:16 Temperature -Last 24 Hours Temperature 98.0 F Temperature 98.2 F Temperature 98.3 F Temperature 98.0 F Temperature 98.4 F - Labs CBC & Chem 7: 02/25/19 03:01 02/25/19 03:01
[2019-02-26 12:56] VITALS: BP 122/88
--- NOTE | 2019-02-26 13:25 | Progress Note ---
Assessment and Plan Pt feeling well without compl. yue solid breakfast and lunch. no compl. Abd soft, non tender ID eval appreciated A/P: 39 yo M with Hx of gout admitted for contained perforated appendicitis with appendiceal abscess. 1. Contained perforated appendicitis with appendiceal abscess - he is doing significantly better with antibiotics, and is no longer in pain. Can continue the pip-tazo for now. Will discontinue the metronidazole as anaerobic coverage is provided by the pip-tazo. On discharge would send home with Cipro 750mg BID PO and Augmentin 875/125mg BID to complete 2 weeks of therapy given the presence of his abscess. 2. Hx of gout Recs: continue pip-tazo 4.5g q8h anticipate discharge on Cipro 750mg PO Bid and Augmentin 875/125 mg PO Bid total 2 weeks ending 03-11-[address] in 2 weeks- order placed Follow-up ID clinic in 3 weeks sent to program scheduler) surgically stable O.K to d/c today from surg perspective. will f/u in the office this Mon. repeat CT in 2 weeks. whether semi-elective appendectomy will be required will be determined by pts clinical progression and f/u CT findings Selected Entries 02/26/19 10:47 Temperature 98.0 F Pulse Rate 60 Respiratory 20 Rate Blood Pressure 122/88 Objective Vital Signs - 12hr 02/26/19 02/26/19 02/26/19 03:28 04:30 07:16 Temperature 98.2 F 98.0 F Pulse Rate 60 65 Respiratory 18 18 Rate Blood Pressure 95/52 107/64 O2 Sat by Pulse 93 99 Oximetry 02/26/19 10:47 Temperature 98.0 F Pulse Rate 60 Respiratory 20 Rate Blood Pressure 122/88 O2 Sat by Pulse 97 Oximetry - Labs 02/25/19 03:01 02/25/19 03:01
--- NOTE | 2019-02-26 13:33 | Discharge Summary ---
Providers - Providers Date of Admission: 02/21/19 17:12 Date of discharge: 02/19/19 Attending physician: DAKOTA MCNULTY 02/21/19 19:24 Consult to Physician [CONS] Stat Comment: Consulting Provider: ZULEMA OWENS MD, FACS Physician Instructions: Reason For Exam: acute appendicitis 02/21/19 19:44 Consult to Physician [CONS] Routine Comment: Consulting Provider: TRACY SENIOR Physician Instructions: Reason For Exam: appendiceal abscess possible CT guided drainage 02/25/19 12:52 Consult to Physician [CONS] Routine Comment: Consulting Provider: LONNIE FAUST Physician Instructions: Reason For Exam: contained small appendeceal abscess [facility] Condition: Fair Disposition: DC-01 TO HOME OR SELFCARE Core Measure Documentation - Palliative Care Palliative Care/ Comfort Measures: Not Applicable - Core Measures Any of the following diagnoses?: none Exam - Constitutional Vitals: Temp Pulse Resp BP Pulse Ox 98.0 F 60 20 122/88 97 02/26/19 10:47 02/26/19 10:47 02/26/19 10:47 02/26/19 10:47 02/26/19 10:47 Plan Diet: low fat, low cholesterol, low salt Additional Instructions: 1.Follow up with PCP or [facility] in 1 week. 2.Follow up with Dr. Owens, Surgeon on Monday03/01/19. 3.Follow up with Dr. Guillermo toth, ID Physician in 2-[address]. [address] Abd in 2 weeks Follow up with: DOMINGO BERRY MD [Primary Care Provider] - 3-5 Days Other Discharge Orders: CT abdomen pelvis w con Time Frame: 2 Weeks, Facility: [facility], Location: [facility]
== END 2019-02-26 14:39 | disposition home or self-care (01) | DRG 373 ==
LOC: ED 12:53 → 3B-SURG 17:12
PROVIDERS: ADMIT Internal Medicine; ATTEND Internal Medicine
DX: K35.33 Acute appendicitis with perforation, localized peritonitis, and gangrene, with abscess (principal); M10.9 Gout, unspecified
CPT/HCPCS: 36415; 74177; 80048; 80053; 81001; 85025; 87040; 94640; 96365; 96375; G0378; J2270; J2405; J2543; J7030; Q9967

== ENCOUNTER 2019-03-16 01:04 | Inpatient (IN) | payer OTHER ==
[2019-03-16] MEDS ORDERED: LEVAQUIN 750MG/150ML 750 MG/150 ML BAG IV ONE (01:19)
[2019-03-16] MEDS ORDERED: NACL 0.9% 1000 ML 1,000 ML IV ONE ×2 (01:19→01:22)
[2019-03-16] MEDS ORDERED: DILAUDID IV ONE ×2 (01:19→05:11)
--- NOTE | 2019-03-16 01:24 | Emergency Department Report ---
ED Abdominal Pain HPI - General Chief Complaint: Abdominal Pain Stated Complaint: ABDOMINAL PAIN Time Seen by Provider: 03/16/19 01:14 Source: patient, RN notes reviewed, old records reviewed Mode of arrival: Ambulatory Limitations: No Limitations - History of Present Illness Initial Comments: This is a 39-year-old gentleman. This patient is not known to this provider previously. The patient has a history of gout and acute as appendicitis with appendiceal abscess. The patient was admitted to the hospital last month for acute appendicitis, and was found to have complicated appendicitis with perforation and abscess. He was seen in consultation with general surgery, as well as infectious disease. Reportedly he improved with bowel rest and intravenous antibiotics. He had a repeat CT scan shortly thereafter, while in the hospital, which showed improvement, and he was discharged on oral antibiotics with instructions to follow-up as an outpatient. Patient reports that his symptoms mostly improved. He presents to the ER today with complaint of recurrent right lower quadrant pain, which started yesterday morning, pain described as sharp, increases with palpation, decreases with rest, with no testicular pain, and no irritative or obstructive urinary symptoms. Positive nausea, positive chills, no fevers. He reports his symptoms are similar to his prior episode of appendicitis. MD Complaint: abdominal pain -: Gradual, days(s) Location: RLQ Radiation: none Severity: moderate Quality: aching Consistency: constant Improves With: medication, rest Worsens With: movement Associated Symptoms: nausea, vomiting, chills - Related Data Previous Rx's Medication Instructions Recorded Last Taken Type Amoxicillin/Potassium Clav 1 each PO BID #28 tablet 02/26/19 Unknown Rx [Augmentin 875-125 Tablet] Ciprofloxacin HCl [Ciprofloxacin 750 mg PO BID #28 tablet 02/26/19 Unknown Rx TAB] Allergies Allergy/AdvReac Type Severity Reaction Status Date / Time No Known Allergies Allergy Unverified 02/21/19 12:54 ED Review of Systems ROS: Stated complaint: ABDOMINAL PAIN Other details as noted in HPI Constitutional: chills. denies: fever Eyes: denies: eye discharge ENT: denies: epistaxis Respiratory: denies: cough Cardiovascular: denies: chest pain Gastrointestinal: abdominal pain Genitourinary: denies: testicular pain Musculoskeletal: denies: myalgia Skin: denies: lesions Neurological: weakness Psychiatric: anxiety ED Past Medical Hx - Past Medical History Previous Medical History?: Yes Hx Congestive Heart Failure: No Hx Diabetes: No Hx Asthma: No Hx COPD: No Additional medical history: Gout, appendicitis - Surgical History Past Surgical History?: No - Social History Smoking Status: Never Smoker Substance Use Type: None - Medications Home Medications: Home Medications Medication Instructions Recorded Confirmed Last Taken Type Amoxicillin/Potassium Clav 1 each PO BID #28 tablet 02/26/19 Unknown Rx [Augmentin 875-125 Tablet] Ciprofloxacin HCl [Ciprofloxacin 750 mg PO BID #28 tablet 02/26/19 Unknown Rx TAB] ED Physical Exam - General Limitations: No Limitations General appearance: alert, anxious, in distress - Head Head exam: Present: atraumatic, normocephalic - Eye Eye exam: Present: normal appearance, EOMI. Absent: nystagmus - ENT ENT exam: Present: normal exam, normal orophraynx, mucous membranes moist, normal external ear exam - Neck Neck exam: Present: normal inspection, full ROM. Absent: tenderness, meningismus - Respiratory Respiratory exam: Present: normal lung sounds bilaterally. Absent: respiratory distress - Cardiovascular Cardiovascular Exam: Present: regular rate, normal rhythm, normal heart sounds. Absent: bradycardia, tachycardia, irregular rhythm, systolic murmur, diastolic murmur, rubs, gallop - GI/Abdominal GI/Abdominal exam: Present: soft, tenderness, guarding. Absent: distended, rebound, rigid, pulsatile mass - Rectal Rectal exam: Present: deferred - Extremities Exam Extremities exam: Present: normal inspection, full ROM, other (2+ pulses noted in the bilateral upper, lower extremities. Compartments soft. No long bony tenderness. The pelvis is stable.). Absent: pedal edema, joint swelling, calf tenderness - Back Exam Back exam: Present: normal inspection, full ROM. Absent: tenderness, CVA tenderness (R), CVA tenderness (L), muscle spasm, paraspinal tenderness, verte bral tenderness - Neurological Exam Neurological exam: Present: alert, oriented X3, normal gait, other (Extraocular movements intact. Tongue midline. No facial droop. Facial sensation intact to light touch in the V1, V2, V3 distribution bilaterally. 5 and 5 strength in 4 extremities.. Sensation is intact to light touch in 4 extremities.). Absent: motor sensory deficit - Psychiatric Psychiatric exam: Present: anxious - Skin Skin exam: Present: warm, dry, intact, normal color. Absent: rash ED Course Vital Signs 03/16/19 03/16/19 03/16/19 01:07 02:29 02:33 Temperature 98.6 F Pulse Rate 86 72 Respiratory 18 14 15 Rate Blood Pressure 143/93 Blood Pressure 147/97 [Left] O2 Sat by Pulse 97 96 97 Oximetry 03/16/19 03:27 Temperature Pulse Rate 70 Respiratory 17 Rate Blood Pressure Blood Pressure 142/87 [Left] O2 Sat by Pulse 97 Oximetry - Reevaluation(s) Reevaluation #1: 03/16/19 02:14 Differential diagnosis, including but not limited to: Appendicitis, abscess, renal colic, urinary tract infection Assessment and plan: 39-year-old gentleman with a history of appendicitis with abscess, she with antibiotics, likely presenting with recurrent appendicitis. He is tender, however, afebrile with reassuring vital signs. He refused a testicular exam. He understands the risks of not having a testicular exam, including undiagnosed testicular torsion, or epididymal orchitis, which could result in infertility, loss of the testicle, and impotence. The patient is alert and oriented, clinically sober, and exhibits decision- making capacity, and is free from distracting injury at this time. During this conversation about the testicular exam, I am chaperoned by nurse Aayush Brown However, I clinically favor acute appendicitis, recurrent, therefore, we'll obtain CT scan of the abdomen and pelvis, sheet with IV fluids, pain medicine and appropriate antibiotics. Reevaluation #2: 03/16/19 04:25 CT scan demonstrates acute appendicitis with periappendiceal abscess. Discussed with general surgeon of record, Dr. Paul Owens, who agrees to follow in consultation. He states the patient did not follow-up with him, even though he was instructed to. Case presented to Hospital physician, Dr. Nguyen Daily, who has accepted the patient to the medical service. ED Medical Decision Making - Lab Data Result diagrams: 03/16/19 01:50 03/16/19 01:50 Vital Signs 03/16/19 01:07 Temperature 98.6 F Pulse Rate 86 Respiratory 18 Rate Blood Pressure 143/93 O2 Sat by Pulse 97 Oximetry Lab Results 03/16/19 Range/Units 01:50 WBC 5.8 (4.5-11.0) K/mm3 RBC 4.96 (3.65-5.03) M/mm3 Hgb 13.7 (11.8-15.2) gm/dl Hct 41.3 (35.5-45.6) % MCV 83 L (84-94) fl MCH 28 (28-32) pg MCHC 33 (32-34) % RDW 14.2 (13.2-15.2) % Plt Count 224 (140-440) K/mm3 Lymph % (Auto) 23.6 (13.4-35.0) % [place] % (Auto) 10.1 H (0.0-7.3) % Eos % (Auto) 3.2 (0.0-4.3) % Baso % (Auto) 0.8 (0.0-1.8) % Lymph # 1.4 (1.2-5.4) K/mm3 Chester # 0.6 (0.0-0.8) K/mm3 Eos # 0.2 (0.0-0.4) K/mm3 Baso # 0.0 (0.0-0.1) K/mm3 Seg Neutrophils % 62.3 (40.0-70.0) % Seg Neutrophils # 3.6 (1.8-7.7) K/mm3 - EKG Data -: EKG Interpreted by Oh EKG shows normal: sinus rhythm Rate: normal - EKG Data 03/16/19 04:27 This is a sinus rhythm, normal, 67 bpm, and borderline leftward axis deviation, QTC within normal limits, poor R-wave progression, low voltage in the lateral leads, the EKG is nonspecific, EKG is abnormal, the EKG is not consistent with ST elevation myocardial infarction. - Radiology Data Radiology results: pending, report reviewed, image reviewed Print Report Referring Physician: DAKOTA PATIÑO Patient Name: MADELYN ODOM Date of : 1980 Sex: Male Report Date: 2019-03-16 Report Status: Finalized Findings [facility] [address] [place] [address] Cat Scan Report Signed Patient: MADELYN ODOM JR MR#: [id number] : 1980 Acct:[id number] Age/Sex: 39 / M ADM Date: 03/16/19 Loc: ED Attending Dr: Ordering Physician: DAKOTA PATIÑO MD Date of Service: 03/16/19 Procedure(s): CT abdomen pelvis w con Accession Number(s): [id number] cc: DAKOTA PATIÑO MD CT abdomen pelvis w con INDICATION / CLINICAL INFORMATION: Right lower quadrant pain. TECHNIQUE: The patient received 100 cc Omnipaque [address] scans at this location are performed using CT dose reduction for ALARA by means of automated exposure control. COMPARISON: 02/25/2019. FINDINGS: ABDOMEN: The liver, spleen, gallbladder, bile ducts, pancreas, adrenal glands, kidneys and bowel demonstrate no significant abnormality. No adenopathy is seen. The lung bases are clear. PELVIS: Again noted is a dilated thick-walled appendix. Small multiloculated abscess adjacent to the distal appendix and appendiceal tip is again identified and is better defined and more multi loculated in appearance. No significant increase in size is seen. No free fluid is identified. The distal ureters and urinary bladder are normal. The prostate gland is not significantly enlarged. There is no evidence of diverticulitis. I do not identify a hernia. No acute osseous abnormality is seen. IMPRESSION: Findings of acute appendicitis are again identified. Small confluent multiloculated abscesses along the distal aspect of the appendix and the appendiceal tip are present. Although the abscesses are more multiloculated in appearance, they do not appear significantly larger than on the most recent study from 02/25/2019.. Signer Name: Rafal Carter MD Signed: 03/16/2019 4:06 AM Workstation Name: [id number] Transcribed By: RT Dictated By: Rafal Carter MD Electronically Authenticated By: Rafal Carter MD Signed Date/Time: 03/16/19 0406 Critical care attestation.: If time is entered above; I have spent that time in minutes in the direct care of this critically ill patient, excluding procedure time. ED Disposition Clinical Impression: Acute appendicitis with appendiceal abscess Disposition: 09 OP ADMIT IP TO THIS HOSP Is pt being admited?: Yes Condition: Stable Referrals: DOMINGO BERRY MD [Primary Care Provider] - 3-5 Days
[2019-03-16] MEDS ORDERED: REGLAN ONE (01:36)
[2019-03-16] MEDS ORDERED: REGLAN IV ONE (01:40)
[2019-03-16] MEDS ORDERED: FLAGYL 500 MG/100 ML 500 MG/100 ML BAG IV SCH ×2 (02:00→08:00)
[2019-03-16 02:13] LABS: Basophils % (Auto) 0.8 % (0.0-1.8); Eosinophils # (Auto) 0.2 K/mm3 (0.0-0.4); Eosinophils % (Auto) 3.2 % (0.0-4.3); Hematocrit 41.3 % (35.5-45.6); Hemoglobin 13.7 gm/dl (11.8-15.2); Lymphocytes # (Auto) 1.4 K/mm3 (1.2-5.4); Lymphocytes % (Auto) 23.6 % (13.4-35.0); Mean Corpuscular HGB Conc 33 % (32-34); Mean Corpuscular Volume 83 fl (84-94); Monocytes # (Auto) 0.6 K/mm3 (0.0-0.8); Monocytes % (Auto) 10.1 % (0.0-7.3); Platelet Count 224 K/mm3 (140-440); Red Blood Count 4.96 M/mm3 (3.65-5.03); Red Cell Distribution Width 14.2 % (13.2-15.2)
[2019-03-16 02:29] LABS: INR 1.02 (0.87-1.13)
[2019-03-16 02:38] LABS: Alanine Aminotransferase 33 units/L (7-56); Albumin 3.8 g/dL (3.9-5); BUN/Creatinine Ratio 15; Blood Urea Nitrogen 15 mg/dL (9-20); Calcium 8.6 mg/dL (8.4-10.2); Hemolysis Index 9
[2019-03-16 02:39] LABS: Bilirubin,Direct < 0.2 mg/dL (0-0.2)
[2019-03-16] MEDS ORDERED: KCL 10MEQ/100ML 10 MEQ/100 ML BAG IV SCH (04:00)
--- NOTE | 2019-03-16 04:10 | Cat Scan Report ---
CT abdomen pelvis w con INDICATION / CLINICAL INFORMATION: Right lower quadrant pain. TECHNIQUE: The patient received 100 cc Omnipaque [address] scans at this location are performed using CT dose reduction for ALARA by means of automated exposure control. COMPARISON: 02/25/2019. FINDINGS: ABDOMEN: The liver, spleen, gallbladder, bile ducts, pancreas, adrenal glands, kidneys and bowel demo nstrate no significant abnormality. No adenopathy is seen. The lung bases are clear. PELVIS: Again noted is a dilated thick-walled appendix. Small multiloculated abscess adjacent to the distal appendix and appendiceal tip is again identified and is better defined and more multi loculate d in appearance. No significant increase in size is seen. No free fluid is identified. The distal ureters and urinary bladder are normal. The prostate gland is not significantly enlarged. There is no evidence of diverticulitis. I do not identify a hernia. No acute osseous abnormality is s een. IMPRESSION: Findings of acute appendicitis are again identified. Small confluent multiloculated absce sses along the distal aspect of the appendix and the appendiceal tip are present. Although the absces ses are more multiloculated in appearance, they do not appear significantly larger than on the most r ecent study from 02/25/2019.. Signer Name: Rafal Carter MD Signed: 03/16/2019 4:06 AM Workstation Name: [id number]
[2019-03-16] MEDS ORDERED: K-DUR PO ONE (04:46)
[2019-03-16] MEDS ORDERED: DILAUDID ONE (05:11)
[2019-03-16] MEDS ORDERED: SODIUM CHLORIDE FLUSH SYRINGE 10 ML IV PRN (05:15)
[2019-03-16] MEDS ORDERED: MORPHINE IV PRN (05:15)
[2019-03-16] MEDS ORDERED: ZOFRAN IV PRN (05:15)
[2019-03-16] MEDS ORDERED: TYLENOL PR PRN (05:18)
--- NOTE | 2019-03-16 05:20 | History and Physical Report ---
History of Present Illness Date of examination: 03/16/19 Date of admission: 03/16/19 Chief complaint: Abdominal pain History of present illness: 39-year-old -Armenian male with history of gout and ascites presents to [facility] ED with complaints of nausea, vomiting and abdominal pain for the past day. Patient states that he started experiencing recurrent abdominal pain yesterday morning accompanied by nausea and vomiting. The pain originates in the right lower quadrant with radiation to right upper quadrant and right lower back. He describes his pain has sharp and rates it 10/10. The pain is aggravated with movement and palpation and relieved with rest and pain medicine. Patient was recently admitted on 02/21 and treated with IV antibiotics for acute appendicitis. He was discharged on 02/26 on oral Cipro and Augmentin for 2 weeks and on 03/11. Patient was advised to have repeat CT in 2 weeks and follow-up in ID clinic in 3 weeks. Patient states that he missed 1 or 2 days of oral antibiotics. Denies: diarrhea, fever, headache, or recent sick contact Past History Past Medical History: other (appendicitis, Gout) Past Surgical History: No surgical history Social history: no significant social history Family history: no significant family history Medications and Allergies Allergies Allergy/AdvReac Type Severity Reaction Status Date / Time No Known Allergies Allergy Unverified 02/21/19 12:54 Home Medications Medication Instructions Recorded Confirmed Last Taken Type Amoxicillin/Potassium Clav 1 each PO BID #28 tablet 02/26/19 Unknown Rx [Augmentin 875-125 Tablet] Ciprofloxacin HCl [Ciprofloxacin 750 mg PO BID #28 tablet 02/26/19 Unknown Rx TAB] Active Meds: Active Medications Acetaminophen (Tylenol) 650 mg FL Q4H PRN PRN Reason: Pain, Mild (1-3), fever>100.5 Hydromorphone HCl (Dilaudid) 0.5 mg IV Q3H PRN PRN Reason: Pain , Severe (7-10) Metronidazole (Flagyl 500 Mg/100 Ml) 500 mg in 100 mls @ 200 mls/hr IV ONCE TUYET Last Admin: 03/16/19 02:42 Dose: 200 mls/hr Documented by: Sodium Chloride (Nacl 0.9% 1000 Ml) 1,000 mls @ 75 mls/hr IV DIRECT TUYET Piperacillin Sod/Tazobactam Sod (Zosyn/Ns 4.5gm/100ml) 4.5 gm in 100 mls @ 200 mls/hr IV Q8HR TUYET; Protocol Metronidazole (Flagyl 500 Mg/100 Ml) 500 mg in 100 mls @ 100 mls/hr IV Q8HR TUYET; Protocol Metoclopramide HCl (Reglan) 10 mg IV Q6H PRN PRN Reason: Nausea And Vomiting Morphine Sulfate (Morphine) 2 mg IV Q4H PRN PRN Reason: Pain, Moderate (4-6) Ondansetron HCl (Zofran) 4 mg IV Q6H PRN PRN Reason: Nausea And Vomiting Sodium Chloride (Sodium Chloride Flush Syringe 10 Ml) 10 ml IV BID TUYET Sodium Chloride (Sodium Chloride Flush Syringe 10 Ml) 10 ml IV PRN PRN PRN Reason: LINE FLUSH Review of Systems All systems: negative Gastrointestinal: abdominal pain (RLQ with radiation to right lower back), nausea, vomiting Exam - Physical Exam Narrative exam: Physical exam General appearance: Present: mild distress distress, alert and oriented x3, pleasant, -Armenian male - EENT Eyes: Present: PERRL, EOM intact ENT: hearing intact, normal dentition - Neck Neck: Present: supple, normal ROM - Respiratory Respiratory effort: Non-labored Respiratory: CTA bilaterally - Cardiovascular Heart rate: 70 (bpm) Rhythm: SR Heart Sounds: Present: S1 & S2. Absent: rub, click - Extremities Extremities: no ischemia, pulses intact, abnormal - Peripheral Assessment Peripheral Pulses: within normal limits - Abdominal General gastrointestinal: soft, RUQ tenderness, normal bowel sounds - Integumentary Integumentary: Present: warm, dry - Musculoskeletal Musculoskeletal: able to move all extremities -Neurological Neurological: CN II-XII - Psychiatric Psychiatric: cooperative - Constitutional Vitals: Temp Pulse Resp BP Pulse Ox 98.6 F 70 17 142/87 97 03/16/19 01:07 03/16/19 03:27 03/16/19 03:27 03/16/19 03:27 03/16/19 03:27 Results - Labs CBC & Chem 7: 03/16/19 01:50 03/16/19 01:50 Labs: Laboratory Last Values WBC 5.8 K/mm3 (4.5-11.0) 03/16/19 01:50 RBC 4.96 M/mm3 (3.65-5.03) 03/16/19 01:50 Hgb 13.7 gm/dl (11.8-15.2) 03/16/19 01:50 Hct 41.3 % (35.5-45.6) 03/16/19 01:50 MCV 83 fl (84-94) L 03/16/19 01:50 MCH 28 pg (28-32) 03/16/19 01:50 MCHC 33 % (32-34) 03/16/19 01:50 RDW 14.2 % (13.2-15.2) 03/16/19 01:50 Plt Count 224 K/mm3 (140-440) 03/16/19 01:50 Lymph % (Auto) 23.6 % (13.4-35.0) 03/16/19 01:50 [place] % (Auto) 10.1 % (0.0-7.3) H 03/16/19 01:50 Eos % (Auto) 3.2 % (0.0-4.3) 03/16/19 01:50 Baso % (Auto) 0.8 % (0.0-1.8) 03/16/19 01:50 Lymph # 1.4 K/mm3 (1.2-5.4) 03/16/19 01:50 Gibson # 0.6 K/mm3 (0.0-0.8) 03/16/19 01:50 Eos # 0.2 K/mm3 (0.0-0.4) 03/16/19 01:50 Baso # 0.0 K/mm3 (0.0-0.1) 03/16/19 01:50 Seg Neutrophils % 62.3 % (40.0-70.0) 03/16/19 01:50 Seg Neutrophils # 3.6 K/mm3 (1.8-7.7) 03/16/19 01:50 PT 13.1 Sec. (12.2-14.9) 03/16/19 01:50 INR 1.02 (0.87-1.13) 03/16/19 01:50 Sodium 141 mmol/L (137-145) 03/16/19 01:50 Potassium 3.4 mmol/L (3.6-5.0) L 03/16/19 01:50 Chloride 105.0 mmol/L (98-107) 03/16/19 01:50 Carbon Dioxide 25 mmol/L (22-30) 03/16/19 01:50 14 mmol/L 03/16/19 01:50 BUN 15 mg/dL (9-20) 03/16/19 01:50 1.0 mg/dL (0.8-1.5) 03/16/19 01:50 Estimated GFR > 60 ml/min 03/16/19 01:50 15 % 03/16/19 01:50 Glucose 106 mg/dL (75-100) H 03/16/19 01:50 Lactic Acid 1.60 mmol/L (0.7-2.0) 03/16/19 01:50 Calcium 8.6 mg/dL (8.4-10.2) 03/16/19 01:50 Magnesium 2.20 mg/dL (1.7-2.3) 03/16/19 01:50 0.40 mg/dL (0.1-1.2) 03/16/19 01:50 < 0.2 mg/dL (0-0.2) 03/16/19 01:50 0.2 mg/dL 03/16/19 01:50 AST 23 units/L (5-40) 03/16/19 01:50 ALT 33 units/L (7-56) 03/16/19 01:50 56 units/L (35-129) 03/16/19 01:50 180 units/L (55-170) H 03/16/19 01:50 7.1 g/dL (6.3-8.2) 03/16/19 01:50 3.8 g/dL (3.9-5) L 03/16/19 01:50 1.2 % 03/16/19 01:50 17 units/L (13-60) 03/16/19 01:50 - Imaging and Cardiology Imaging and Cardiology: CT Abd/Pelvis: Findings: ABDOMEN: The liver, spleen, gallbladder, bile ducts, pancreas, adrenal glands, kidneys and bowel demonstrate no significant abnormality. No adenopathy is seen. The lung bases are clear. PELVIS: Again noted is a dilated thick-walled appendix. Small multiloculated abscess adjacent to the distal appendix and appendiceal tip is again identified and is better defined and more multi loculated in appearance. No significant increase in size is seen. No free fluid is identified. The distal ureters and urinary bladder are normal. The prostate gland is not significantly enlarged. There is no evidence of diverticulitis. I do not identify a hernia. No acute osseous abnormality is seen. Impression: Findings of acute appendicitis are again identified. Small confluent multiloculated abscesses along the distal aspect of the appendix and the appendiceal tip are present. Although the abscesses are more multiloculated in appearance, they do not appear significantly larger than on the most recent study from 02/25/2019.. Assessment and Plan Assessment and plan: 39-year-old -Armenian male with history of gout and ascites presents to [facility] ED with complaints of nausea, vomiting and recurrent RLQ abdominal pain for the past day. Acute Abdominal Pain -likely due to acute appendicitis -Continue Supportive Care -Continue pain mgmt Acute Appendicitis -CT Abdomen reveals acute appendicitis are again identified; small confluent multiloculated abscesses along the distal aspect of the appendix and the appendiceal tip are present -NPO -hydrate with IVF -Gen Surg consulted Hypokalemia -mild, potassium 3.4 on admission -Replaced -Continue to monitor electrolytes and replete prn DVT PPX -On Scd's Hx Gout Advance Directives: No VTE prophylaxis?: Mechanical Plan of care discussed with patient/family: Yes
[2019-03-16 05:49] LABS: Bilirubin,Urine NEG (Negative); Blood,Urine NEG (Negative); Color,Urine Colorless (Yellow); Protein,Urine <15 mg/dL mg/dL (Negative); RBC,Urine < 1.0 /HPF (0.0-6.0); Urobilinogen,Urine < 2.0 mg/dL (<2.0); WBC,Urine < 1.0 /HPF (0.0-6.0)
[2019-03-16] MEDS ORDERED: ZOSYN/NS 4.5GM/100ML 4.5 GM/100 ML VIAL IV SCH (06:00)
[2019-03-16] MEDS: NACL 0.9% 1000 ML 1,000 ML IV SCH (07:54)
[2019-03-16] MEDS: FLAGYL 500 MG/100 ML 500 MG/100 ML BAG IV SCH ×2 (10:00→17:04)
[2019-03-16] MEDS: REGLAN IV PRN (10:05)
[2019-03-16] MEDS: DILAUDID IV PRN ×2 (10:05→15:29)
--- NOTE | 2019-03-16 10:21 | Progress Note ---
Assessment and Plan Full consult dictated Pt known to me. Admitted last month with chronic appendeceal abscess of some days duration. Rx with IV antibiotics and clinically symptoms resolved. D/c'ed on reg diet, afebrile and pain free. Plan was to continue antibiotics for 2 more weeks as per ID. also f/u in office and f/u CT in 2 weeks. Pt states that he "missed some antibiotic doses" and didn't take as directed. also did not f/u with ID or my office appts. Never returned for f/u CT. Now admitted secondary to recurring RLQ abd pain. CT - recurring signs of appendicitis with multiloculated abscess formation near appendiceal tip. Abd - RLQ tenderness wbc 5.8 will once again begin IV antibiotic Rx. IR eval to eval possibility of CT guided drainage. Will most likely need surgical expl during this admissiion but would like to a ttempt some days of antibiotic Rx and possible percutaneus drainage in order to reduce the chances of having to proceed with possible R hemicolectomy vs simple appendectomy. will monitor clinically Chief complaint: Abdominal pain History of present illness: 39-year-old -[place] male with history of gout and ascites presents to [facility] ED with complaints of nausea, vomiting and abdominal pain for the past day. Patient states that he started experiencing recurrent abdominal pain yesterday morning accompanied by nausea and vomiting. The pain originates in the right lower quadrant with radiation to right upper quadrant and right lower back. He describes his pain has sharp and rates it 10/10. The pain is aggravated with movement and palpation and relieved with rest and pain medicine. Patient was recently admitted on 02/21 and treated with IV antibiotics for acute appendicitis. He was discharged on 02/26 on oral Cipro and Augmentin for 2 weeks and on 03/11. Patient was advised to have repeat CT in 2 weeks and follow-up in ID clinic in 3 weeks. Patient states that he missed 1 or 2 days of oral antibiotics. Denies: diarrhea, fever, headache, or recent sick contact Past History Past Medical History: other (appendicitis, Gout) Past Surgical History: No surgical history Social history: no significant social history Family history: no significant family history Selected Entries 03/16/19 07:44 Temperature 98.1 F Pulse Rate 89 Respiratory 18 Rate Blood Pressure 135/87 [Left] Laboratory Tests 03/16/19 03/16/19 01:50 01:50 WBC 5.8 Hgb 13.7 Hct 41.3 Potassium 3.4 L Objective Vital Signs - 12hr 03/16/19 03/16/19 03/16/19 01:07 01:21 01:30 Temperature 98.6 F Pulse Rate 86 71 Respiratory 18 25 H Rate Blood Pressure 143/93 137/89 139/80 Blood Pressure [Left] O2 Sat by Pulse 97 97 98 Oximetry 03/16/19 03/16/19 03/16/19 01:40 01:50 02:00 Temperature Pulse Rate 68 67 70 Respiratory 8 L 14 13 Rate Blood Pressure 137/89 130/72 130/80 Blood Pressure [Left] O2 Sat by Pulse 93 91 93 Oximetry 03/16/19 03/16/19 03/16/19 02:10 02:20 02:29 Temperature Pulse Rate 67 78 72 Respiratory 19 12 14 Rate Blood Pressure 130/80 147/97 Blood Pressure 147/97 [Left] O2 Sat by Pulse 93 96 96 Oximetry 03/16/19 03/16/19 03/16/19 02:30 02:33 02:40 Temperature Pulse Rate 66 63 Respiratory 16 15 12 Rate Blood Pressure 131/86 147/97 Blood Pressure [Left] O2 Sat by Pulse 94 97 93 Oximetry 03/16/19 03/16/19 03/16/19 02:50 03:00 03:26 Temperature Pulse Rate 66 77 69 Respiratory 10 L 12 11 L Rate Blood Pressure 147/97 131/75 142/87 Blood Pressure [Left] O2 Sat by Pulse 93 94 97 Oximetry 03/16/19 03/16/19 03/16/19 03:27 03:30 03:40 Temperature Pulse Rate 70 89 67 Respiratory 17 16 14 Rate Blood Pressure 137/78 137/78 Blood Pressure 142/87 [Left] O2 Sat by Pulse 97 98 93 Oximetry 03/16/19 03/16/19 03/16/19 03:50 04:00 04:10 Temperature Pulse Rate 70 82 66 Respiratory 13 16 21 Rate Blood Pressure 137/78 137/78 116/48 Blood Pressure [Left] O2 Sat by Pulse 93 92 96 Oximetry 03/16/19 03/16/19 03/16/19 04:20 04:30 04:40 Temperature Pulse Rate 66 67 67 Respiratory 11 L 14 14 Rate Blood Pressure 137/78 117/76 117/76 Blood Pressure [Left] O2 Sat by Pulse 95 96 95 Oximetry 03/16/19 03/16/19 03/16/19 04:50 05:00 05:10 Temperature Pulse Rate 89 70 88 Respiratory 15 12 14 Rate Blood Pressure 117/76 135/89 135/89 Blood Pressure [Left] O2 Sat by Pulse 98 98 97 Oximetry 03/16/19 03/16/19 03/16/19 05:20 05:30 07:33 Temperature 98.1 F Pulse Rate 71 69 89 Respiratory 12 16 18 Rate Blood Pressure 122/84 128/84 135/87 Blood Pressure [Left] O2 Sat by Pulse 97 96 98 Oximetry 03/16/19 07:44 Temperature 98.1 F Pulse Rate 89 Respiratory 18 Rate Blood Pressure Blood Pressure 135/87 [Left] O2 Sat by Pulse 97 Oximetry - Labs 03/16/19 01:50 03/16/19 01:50 Diabetes panel 03/16/19 Range/Units 01:50 Sodium 141 (137-145) mmol/L Potassium 3.4 L (3.6-5.0) mmol/L Chloride 105.0 (98-107) mmol/L Carbon Dioxide 25 (22-30) mmol/L BUN 15 (9-20) mg/dL Creatinine 1.0 (0.8-1.5) mg/dL Glucose 106 H (75-100) mg/dL Calcium 8.6 (8.4-10.2) mg/dL AST 23 (5-40) units/L ALT 33 (7-56) units/L Alkaline Phosphatase 56 (35-129) units/L Total Protein 7.1 (6.3-8.2) g/dL Albumin 3.8 L (3.9-5) g/dL Calcium panel 03/16/19 Range/Units 01:50 Calcium 8.6 (8.4-10.2) mg/dL Albumin 3.8 L (3.9-5) g/dL Pituitary panel 03/16/19 Range/Units 01:50 Sodium 141 (137-145) mmol/L Potassium 3.4 L (3.6-5.0) mmol/L Chloride 105.0 (98-107) mmol/L Carbon Dioxide 25 (22-30) mmol/L BUN 15 (9-20) mg/dL Creatinine 1.0 (0.8-1.5) mg/dL Glucose 106 H (75-100) mg/dL Calcium 8.6 (8.4-10.2) mg/dL Adrenal panel 03/16/19 Range/Units 01:50 Sodium 141 (137-145) mmol/L Potassium 3.4 L (3.6-5.0) mmol/L Chloride 105.0 (98-107) mmol/L Carbon Dioxide 25 (22-30) mmol/L BUN 15 (9-20) mg/dL Creatinine 1.0 (0.8-1.5) mg/dL Glucose 106 H (75-100) mg/dL Calcium 8.6 (8.4-10.2) mg/dL Total Bilirubin 0.40 (0.1-1.2) mg/dL AST 23 (5-40) units/L ALT 33 (7-56) units/L Alkaline Phosphatase 56 (35-129) units/L Total Protein 7.1 (6.3-8.2) g/dL Albumin 3.8 L (3.9-5) g/dL
--- NOTE | 2019-03-16 11:01 | Consultation ---
REASON FOR CONSULTATION: Recurring appendicitis. HISTORY OF PRESENT ILLNESS: The patient is a 39-year-old gentleman well known to me. He was admitted at this institution last month with a history of chronic appendiceal abscess of a few days' duration. The patient was treated with IV antibiotics and his clinical symptoms resolved. He was subsequently discharged on a regular diet, afebrile, and pain free. Outlined plan was for the patient is to continue IV antibiotics for another 2 weeks as per ID and follow up with ID as well as in my office. Also, the patient was scheduled for a followup CAT scan in 2 weeks from discharge. However, the patient states that he some of his antibiotic doses never followed up with ID and then follow up with my office appointment that he states he had to " Also, never returned for his followup CT. At this time, the patient is readmitted with recurring right lower quadrant abdominal pain. Followup CAT scan at this time reveals a recurring signs of appendicitis with a multiloculated abscess formation at the appendiceal tip. PAST MEDICAL HISTORY: For other past history, please review the patient's previous admission from last month. PHYSICAL EXAMINATION: GENERAL: At this time reveals the patient to be awake, alert and cooperative. Moderate discomfort, no acute distress. VITAL SIGNS: Shown to be afebrile with a temperature of 98, blood pressure 135/87, pulse of 89 and respirations of 18. ABDOMEN: Examination of the abdomen reveals some mild right lower quadrant localized tenderness. The rest of the abdomen is soft. Bowel sounds are present. LABORATORY DATA: Lab work at present includes a CBC, which shows a white count of 5.8, H and H is 13 and 41. Electrolytes are essentially within normal limits except for the potassium, which is slightly low at 3.4. LFTs are all essentially normal. CT scan findings as previously mentioned. IMPRESSION: At this time is that of a recurrent appendiceal abscess. PLAN: At this time, we will keep the patient n.p.o. Reconsult ID for antibiotic treatment as well as in the interventional radiologist to evaluate for possibility of a possible CT-guided drainage of the appendiceal abscess. The patient most likely will need surgical intervention during this admission. However, I would like to attempt some days of IV antibiotic therapy as well as possible percutaneous drainage of the abscess in order to reduce the chances of having to proceed with a possible right hemicolectomy versus a simple appendectomy. We will monitor clinically and follow with you. Thank you very much for consultation. JOB# [id number] SABIHA/TU
[2019-03-16] MEDS: ZOSYN/NS 4.5GM/100ML 4.5 GM/100 ML VIAL IV SCH ×2 (11:46→18:09)
[2019-03-16] MEDS: SODIUM CHLORIDE FLUSH SYRINGE 10 ML IV SCH (11:48)
--- NOTE | 2019-03-16 14:41 | Event Note ---
Date: 03/16/19 Patient admitted earlier this morning for the management appendiceal abscess and surgery is following.
--- NOTE | 2019-03-16 17:16 | Event Note ---
Date: 03/16/[address] scan as well as the previous CT scan. The patients largest abscess is approximately 4 mm and is not amenable to percutaneous drainage. There is minimal inflammation or standing in the area of the appendix. The patient has no leukocytosis or left shift. This is likely the best window for appendectomy, during the "cool down" phase. Discussed the case with Dr Coronel, who reviewed the films as well.
[2019-03-17] MEDS: FLAGYL 500 MG/100 ML 500 MG/100 ML BAG IV SCH (02:00)
[2019-03-17] MEDS: ZOSYN/NS 4.5GM/100ML 4.5 GM/100 ML VIAL IV SCH ×3 (02:17→18:03)
[2019-03-17 07:31] LABS: Basophils % (Auto) 0.4 % (0.0-1.8); Eosinophils # (Auto) 0.1 K/mm3 (0.0-0.4); Eosinophils % (Auto) 1.1 % (0.0-4.3); Hematocrit 41.8 % (35.5-45.6); Lymphocytes # (Auto) 0.9 K/mm3 (1.2-5.4); Lymphocytes % (Auto) 12.7 % (13.4-35.0); Mean Corpuscular HGB Conc 34 % (32-34); Mean Corpuscular Volume 82 fl (84-94); Monocytes # (Auto) 1.1 K/mm3 (0.0-0.8); Monocytes % (Auto) 14.2 % (0.0-7.3); Platelet Count 213 K/mm3 (140-440); Red Blood Count 5.07 M/mm3 (3.65-5.03); Red Cell Distribution Width 13.8 % (13.2-15.2)
[2019-03-17 07:47] LABS: BUN/Creatinine Ratio 8; Blood Urea Nitrogen 9 mg/dL (9-20); Calcium 8.6 mg/dL (8.4-10.2); Hemolysis Index 0
[2019-03-17] MEDS ORDERED: FLAGYL 500 MG/100 ML 500 MG/100 ML BAG IV SCH (10:00)
[2019-03-17] MEDS: SODIUM CHLORIDE FLUSH SYRINGE 10 ML IV SCH (10:19)
--- NOTE | 2019-03-17 13:56 | Progress Note ---
Assessment and Plan Pt feeling better. decreased pain Abd soft, decreased RLQ tenderness but still present IR eval noted ID eval pending surgicallly stable plan - continue IV antibiotics for another 48-72 hrs to continue to reduce surrounding inflammatory changes and purulence then proceed with appendectomy possible R hemicolectomy Selected Entries 03/17/19 03/17/19 08:09 08:10 Temperature 98.6 F Pulse Rate 81 Respiratory 18 Rate Blood Pressure 123/84 Laboratory Tests 03/17/19 05:59 WBC 7.4 Hgb 14.0 Hct 41.8 Objective Vital Signs - 12hr 03/17/19 03/17/19 03/17/19 05:17 05:18 08:09 Temperature 97.7 F Pulse Rate 91 H 88 80 Respiratory 17 18 Rate Blood Pressure 129/89 123/84 O2 Sat by Pulse 96 95 95 Oximetry 03/17/19 08:10 Temperature 98.6 F Pulse Rate 81 Respiratory Rate Blood Pressure O2 Sat by Pulse 95 Oximetry - Labs 03/17/19 05:59 03/17/19 05:59 Diabetes panel 03/17/19 Range/Units 05:59 Sodium 140 (137-145) mmol/L Potassium 3.6 (3.6-5.0) mmol/L Chloride 101.9 (98-107) mmol/L Carbon Dioxide 25 (22-30) mmol/L BUN 9 (9-20) mg/dL Creatinine 1.1 (0.8-1.5) mg/dL Glucose 99 (75-100) mg/dL Calcium 8.6 (8.4-10.2) mg/dL Calcium panel 03/17/19 Range/Units 05:59 Calcium 8.6 (8.4-10.2) mg/dL Pituitary panel 03/17/19 Range/Units 05:59 Sodium 140 (137-145) mmol/L Potassium 3.6 (3.6-5.0) mmol/L Chloride 101.9 (98-107) mmol/L Carbon Dioxide 25 (22-30) mmol/L BUN 9 (9-20) mg/dL Creatinine 1.1 (0.8-1.5) mg/dL Glucose 99 (75-100) mg/dL Calcium 8.6 (8.4-10.2) mg/dL Adrenal panel 03/17/19 Range/Units 05:59 Sodium 140 (137-145) mmol/L Potassium 3.6 (3.6-5.0) mmol/L Chloride 101.9 (98-107) mmol/L Carbon Dioxide 25 (22-30) mmol/L BUN 9 (9-20) mg/dL Creatinine 1.1 (0.8-1.5) mg/dL Glucose 99 (75-100) mg/dL Calcium 8.6 (8.4-10.2) mg/dL
--- NOTE | 2019-03-17 15:09 | Consultation ---
History of Present Illness - Reason for Consult Consult date: 03/17/19 - History of Present Illness 39 yo M PMHx gout, recent appendiceal abscess admitted for recurrence of abdominal pain after recently being discharged. He had been admitted on 02/21 with abdominal pain which had smoldered for several months prior to becoming acutely intolerable. He was found to have an appendiceal abscess on admission and was given antibiotics with significant symptomatic improvement at the time. He was then discharged on PO Cipro and Augmentin with plans to re-image to ensure the abscess was resolved prior to stopping the course. However, he did not take the antibiotics as directed and missed several doses. He also did not get the repeat CT and did not follow up with either me or general surgery. He now complains RLQ pain which radiates to RUQ and lower back. Denies fevers, sweats, chills. Afebrile since admission with a normal white count. Currently receiving piperacillin-tazobactam and metronidazole. Blood and urine cultures are pending. CTAP showing acute appendicitis with similar sized abscess which is now more loculated. His abdominal pain is better as compared to yesterday. Review of Systems: Bold if positive, otherwise negative General: fevers, chills, rigors HEENT: visual disturbance, diplopia, eye pain Respiratory: cough, sputum, hemoptysis, shortness of breath Cardiovascular: chest pain, syncope Gastrointestinal: nausea, vomiting, diarrhea, abdominal pain Genitourinary: dysuria, hematuria, flank pain Musculoskeletal: neck pain, back pain, joint pain, edema Neurologic: headaches, seizures Hematologic: easy bruising or bleeding Endocrine: night sweats, acute weight loss Skin: rash, jaundice, redness Psychiatric: suicidal, homicidal ideation Past History Past Medical History: other (appendicitis, Gout) Past Surgical History: No surgical history Social history: no significant social history Family history: no significant family history Medications and Allergies Allergies Allergy/AdvReac Type Severity Reaction Status Date / Time No Known Allergies Allergy Unverified 02/21/19 12:54 Home Medications Medication Instructions Recorded Confirmed Last Taken Type Amoxicillin/Potassium Clav 1 each PO BID #28 tablet 02/26/19 03/16/19 03/15/19 22:00 Rx [Augmentin 875-125 Tablet] Ciprofloxacin HCl [Ciprofloxacin 750 mg PO BID #28 tablet 02/26/19 03/16/19 03/15/19 22:00 Rx TAB] Active Meds: Active Medications Acetaminophen (Tylenol) 650 mg [place] Q4H PRN PRN Reason: Pain, Mild (1-3), fever>100.5 Hydromorphone HCl (Dilaudid) 0.5 mg IV Q3H PRN PRN Reason: Pain , Severe (7-10) Last Admin: 03/16/19 15:29 Dose: 0.5 mg Documented by: Sodium Chloride (Nacl 0.9% 1000 Ml) 1,000 mls @ 75 mls/hr IV DIRECT TUYET Last Admin: 03/16/19 07:54 Dose: 75 mls/hr Documented by: Piperacillin Sod/Tazobactam Sod (Zosyn/Ns 4.5gm/100ml) 4.5 gm in 100 mls @ 200 mls/hr IV Q8H TUYET; Protocol Last Admin: 03/17/19 10:18 Dose: 200 mls/hr Documented by: Metronidazole (Flagyl 500 Mg/100 Ml) 500 mg in 100 mls @ 100 mls/hr IV Q8H TUYET; Protocol Last Admin: 03/17/19 10:55 Dose: 100 mls/hr Documented by: Metoclopramide HCl (Reglan) 10 mg IV Q6H PRN PRN Reason: Nausea And Vomiting Last Admin: 03/16/19 10:05 Dose: 10 mg Documented by: Morphine Sulfate (Morphine) 2 mg IV Q4H PRN PRN Reason: Pain, Moderate (4-6) Ondansetron HCl (Zofran) 4 mg IV Q6H PRN PRN Reason: Nausea And Vomiting Last Admin: 03/16/19 15:29 Dose: 4 mg Documented by: Sodium Chloride (Sodium Chloride Flush Syringe 10 Ml) 10 ml IV BID TUYET Last Admin: 03/17/19 10:19 Dose: Not Given Documented by: Sodium Chloride (Sodium Chloride Flush Syringe 10 Ml) 10 ml IV PRN PRN PRN Reason: LINE FLUSH Physical Examination - Physical Exam Narrative exam: Physical Exam: Constitutional: Alert, cooperative. No acute distress Head, Ears, Nose: Normocephalic, atraumatic. External ears, nose normal Eyes: Conjunctivae/corneas clear. No icterus. No ptosis. Neck: Supple, no meningeal signs Oral: dentition fair, no thrush Cardiovascular: S1, S2 normal. Respiratory: Good air entry, clear to auscultation bilaterally GI: Soft, tender RLQ; bowel sounds normal. No peritoneal signs. Musculoskeletal: No pedal edema, no cyanosis. Skin: No rash or abscess Hem/Lymphatic: No palpable cervical or supraclavicular nodes. No lymphangitis Psych: Mood ok. Affect normal Neurological: Awake, alert, oriented. No gross abnormality - Constitutional Vitals: Vital Signs Temp Pulse Resp BP Pulse Ox 98.9 F 87 20 121/88 95 03/17/19 12:12 03/17/19 12:12 03/17/19 12:12 03/17/19 12:12 03/17/19 12:12 Temperature -Last 24 Hours Temperature 98.9 F Temperature 98.6 F Temperature 97.7 F Temperature 97.7 F Temperature 97.5 F Temperature 99.8 F Results - Labs CBC & Chem 7: 03/17/19 05:59 03/17/19 05:59 Labs: Abnormal lab results 03/17/19 Range/Units 05:59 RBC 5.07 H (3.65-5.03) M/mm3 MCV 82 L (84-94) fl Lymph % (Auto) 12.7 L (13.4-35.0) % [place] % (Auto) 14.2 H (0.0-7.3) % Lymph # 0.9 L (1.2-5.4) K/mm3 [place] # 1.1 H (0.0-0.8) K/mm3 Seg Neutrophils % 71.6 H (40.0-70.0) % - Imaging and Cardiology CT scan - abdomen: image reviewed Assessment and Plan Cultures: Blood culture 03/16/19 - NGTD Urine culture 03/16/19 - NGTD A/P: 39 yo M PMHx gout, appendiceal abscess admitted with recurrent appendicitis 1. Appendicitis with appendiceal abscess - Agree with Zosyn, can stop Flagyl as Zosyn covers anaerobes well. Agree with plans for upcoming surgery. Will continue IV medications through the surgery, and will continue a short course (3-5 days) post-op assuming uncomplicated surgery. Duration dependent on surgical outcome. Recurrence likely secondary to poor compliance with antibiotics. 2. Gout Recs: - continue Zosyn 4.5g q8h - stop metronidazole - surgery as per gen surg - duration pending surgical outcome. Jasbir Hayden MD [facility] ([facility] M: [phone] O: [phone] F: [phone]
[2019-03-17] MEDS: NACL 0.9% 1000 ML 1,000 ML IV SCH (15:10)
--- NOTE | 2019-03-17 16:31 | Progress Note ---
Assessment and Plan Assessment and plan: Abdominal pain History of present illness: 39-year-old -[place] male with history of gout and ascites presents to [facility] ED with complaints of nausea, vomiting and abdominal pain for the past day. Patient states that he started experiencing recurrent abdominal pain yes terday morning accompanied by nausea and vomiting. The pain originates in the right lower quadrant with radiation to right upper quadrant and right lower back. He describes his pain has sharp and rates it 10/10. The pain is aggravated with movement and palpation and relieved with rest and pain medicine. Patient was recently admitted on 02/21 and treated with IV antibiotics for acute appendicitis. He was discharged on 02/26 on oral Cipro and Augmentin for 2 weeks and on 03/11. Patient was advised to have repeat CT in 2 weeks and follow-up in ID clinic in 3 weeks. Patient states that he missed 1 or 2 days of oral antibiotics. Denies: diarrhea, fever, headache, or recent sick contact CT Abd/Pelvis: Impression: Findings of acute appendicitis are again identified. Small confluent multiloculated abscesses along the distal aspect of the appendix and the appendiceal tip are present. Although the abscesses are more multiloculated in appearance, they do not appear significantly larger than on the most recent study from 02/25/2019.. Assessment and Plan Assessment and plan: 39-year-old -[place]gian male with history of gout and ascites presents to [facility] ED with complaints of nausea, vomiting and recurrent RLQ abdominal pain for the past day. Acute Abdominal Pain -likely due to acute appendicitis -Continue Supportive Care -Continue pain mgmt Acute Appendicitis -CT Abdomen reveals acute appendicitis are again identified; small confluent multiloculated abscesses along the distal aspect of the appendix and the appendiceal tip are present -NPO -hydrate with IVF -Gen Surg consulted Hypokalemia -mild, potassium 3.4 on admission -Replaced -Continue to monitor electrolytes and replete prn DVT PPX -On Scd's Hx Gout Advance Directives: No VTE prophylaxis?: Mechanical Plan of care discussed with patient/family: Yes Hospitalist Physical - Constitutional Vitals: Temp Pulse Resp BP Pulse Ox 98.9 F 87 20 121/88 95 03/17/19 12:12 03/17/19 12:12 03/17/19 12:12 03/17/19 12:12 03/17/19 12:12 Results - Labs CBC & Chem 7: 03/17/19 05:59 03/17/19 05:59 Labs: Laboratory Last Values WBC 7.4 K/mm3 (4.5-11.0) 03/17/19 05:59 RBC 5.07 M/mm3 (3.65-5.03) H 03/17/19 05:59 Hgb 14.0 gm/dl (11.8-15.2) 03/17/19 05:59 Hct 41.8 % (35.5-45.6) 03/17/19 05:59 MCV 82 fl (84-94) L 03/17/19 05:59 MCH 28 pg (28-32) 03/17/19 05:59 MCHC 34 % (32-34) 03/17/19 05:59 RDW 13.8 % (13.2-15.2) 03/17/19 05:59 Plt Count 213 K/mm3 (140-440) 03/17/19 05:59 Lymph % (Auto) 12.7 % (13.4-35.0) L 03/17/19 05:59 [place] % (Auto) 14.2 % (0.0-7.3) H 03/17/19 05:59 Eos % (Auto) 1.1 % (0.0-4.3) 03/17/19 05:59 Baso % (Auto) 0.4 % (0.0-1.8) 03/17/19 05:59 Lymph # 0.9 K/mm3 (1.2-5.4) L 03/17/19 05:59 [place] # 1.1 K/mm3 (0.0-0.8) H 03/17/19 05:59 Eos # 0.1 K/mm3 (0.0-0.4) 03/17/19 05:59 Baso # 0.0 K/mm3 (0.0-0.1) 03/17/19 05:59 Seg Neutrophils % 71.6 % (40.0-70.0) H 03/17/19 05:59 Seg Neutrophils # 5.3 K/mm3 (1.8-7.7) 03/17/19 05:59 PT 13.1 Sec. (12.2-14.9) 03/16/19 01:50 INR 1.02 (0.87-1.13) 03/16/19 01:50 Sodium 140 mmol/L (137-145) 03/17/19 05:59 Potassium 3.6 mmol/L (3.6-5.0) 03/17/19 05:59 Chloride 101.9 mmol/L (98-107) 03/17/19 05:59 Carbon Dioxide 25 mmol/L (22-30) 03/17/19 05:59 17 mmol/L 03/17/19 05:59 BUN 9 mg/dL (9-20) 03/17/19 05:59 1.1 mg/dL (0.8-1.5) 03/17/19 05:59 Estimated GFR > 60 ml/min 03/17/19 05:59 8 % 03/17/19 05:59 Glucose 99 mg/dL (75-100) 03/17/19 05:59 Lactic Acid 1.60 mmol/L (0.7-2.0) 03/16/19 01:50 Calcium 8.6 mg/dL (8.4-10.2) 03/17/19 05:59 Magnesium 2.20 mg/dL (1.7-2.3) 03/16/19 01:50 0.40 mg/dL (0.1-1.2) 03/16/19 01:50 < 0.2 mg/dL (0-0.2) 03/16/19 01:50 0.2 mg/dL 03/16/19 01:50 AST 23 units/L (5-40) 03/16/19 01:50 ALT 33 units/L (7-56) 03/16/19 01:50 56 units/L (35-129) 03/16/19 01:50 180 units/L (55-170) H 03/16/19 01:50 7.1 g/dL (6.3-8.2) 03/16/19 01:50 3.8 g/dL (3.9-5) L 03/16/19 01:50 1.2 % 03/16/19 01:50 17 units/L (13-60) 03/16/19 01:50 Colorless (Yellow) 03/16/19 04:38 Clear (Clear) 03/16/19 04:38 7.0 (5.0-7.0) 03/16/19 04:38 Ur Specific [place] 1.023 (1.003-1.030) 03/16/19 04:38 <15 mg/dl mg/dL (Negative) 03/16/19 04:38 Neg mg/dL (Negative) 03/16/19 04:38 Neg mg/dL (Negative) 03/16/19 04:38 Neg (Negative) 03/16/19 04:38 Neg (Negative) 03/16/19 04:38 Neg (Negative) 03/16/19 04:38 < 2.0 mg/dL (<2.0) 03/16/19 04:38 Ur Leukocyte Esterase Neg (Negative) 03/16/19 04:38 < 1.0 /HPF (0.0-6.0) 03/16/19 04:38 < 1.0 /HPF (0.0-6.0) 03/16/19 04:38 Active Medications - Current Medications Current Medications: Generic Name Dose Route Start Last Admin Trade Name Freq PRN Reason Stop Dose Admin Acetaminophen 650 mg 03/16/19 05:18 Tylenol [place] Q4H PRN Pain, Mild (1-3), fever>100.5 Hydromorphone HCl 0.5 mg 03/16/19 05:15 03/16/19 15:29 Dilaudid IV 0.5 mg Q3H PRN Administration Pain , Severe (7-10) Sodium Chloride 1,000 mls @ 75 mls/hr 03/16/19 06:00 03/16/19 07:54 Nacl 0.9% 1000 Ml IV 75 mls/hr DIRECT TUYET Administration Piperacillin Sod/Tazobactam Sod 4.5 gm in 100 mls @ 200 mls/hr 03/16/19 10:00 03/17/19 10:18 Zosyn/Ns 4.5gm/100ml IV 200 mls/hr Q8H TUYET Administration Protocol Metoclopramide HCl 10 mg 03/16/19 05:15 03/16/19 10:05 Reglan IV 10 mg Q6H PRN Administration Nausea And Vomiting Morphine Sulfate 2 mg 03/16/19 05:15 Morphine IV Q4H PRN Pain, Moderate (4-6) Ondansetron HCl 4 mg 03/16/19 05:15 03/16/19 15:29 Zofran IV 4 mg Q6H PRN Administration Nausea And Vomiting Sodium Chloride 10 ml 03/16/19 10:00 03/17/19 10:19 Sodium Chloride Flush Syringe 10 Ml IV Not Given BID TUYET Sodium Chloride 10 ml 03/16/19 05:15 Sodium Chloride Flush Syringe 10 Ml IV PRN PRN LINE FLUSH
[2019-03-17] MEDS: DILAUDID IV PRN (19:23)
[2019-03-17] MEDS: REGLAN IV PRN (19:29)
[2019-03-18] MEDS: ZOSYN/NS 4.5GM/100ML 4.5 GM/100 ML VIAL IV SCH ×4 (01:16→20:07)
[2019-03-18] MEDS: SODIUM CHLORIDE FLUSH SYRINGE 10 ML IV SCH ×2 (01:17→01:21)
[2019-03-18] MEDS: NACL 0.9% 1000 ML 1,000 ML IV SCH (05:38)
--- NOTE | 2019-03-18 07:20 | Progress Note ---
Assessment and Plan Pt continues to feel better. Abd soft ID eval appreciated for expl lap, appendectomy possible R simone-colectomy on wed. reviewed 20% - 30% complication rates of post op abscess formation, anastomotic leaks and wound infections continue present care Selected Entries 03/18/19 03:48 Temperature 98.2 F Pulse Rate 77 Respiratory 18 Rate Blood Pressure 110/69 Objective Vital Signs - 12hr 03/17/19 03/17/19 03/17/19 19:23 19:25 19:53 Temperature 97.7 F Pulse Rate 74 Respiratory 17 19 17 Rate Blood Pressure 124/81 O2 Sat by Pulse 94 Oximetry 03/17/19 03/18/19 03/18/19 20:00 00:02 03:48 Temperature 98.7 F 98.2 F Pulse Rate 78 77 Respiratory 19 18 Rate Blood Pressure 108/73 110/69 O2 Sat by Pulse 95 94 93 Oximetry - Labs 03/17/19 05:59 03/17/19 05:59 Diabetes panel 03/17/19 Range/Units 05:59 Sodium 140 (137-145) mmol/L Potassium 3.6 (3.6-5.0) mmol/L Chloride 101.9 (98-107) mmol/L Carbon Dioxide 25 (22-30) mmol/L BUN 9 (9-20) mg/dL Creatinine 1.1 (0.8-1.5) mg/dL Glucose 99 (75-100) mg/dL Calcium 8.6 (8.4-10.2) mg/dL Calcium panel 03/17/19 Range/Units 05:59 Calcium 8.6 (8.4-10.2) mg/dL Pituitary panel 03/17/19 Range/Units 05:59 Sodium 140 (137-145) mmol/L Potassium 3.6 (3.6-5.0) mmol/L Chloride 101.9 (98-107) mmol/L Carbon Dioxide 25 (22-30) mmol/L BUN 9 (9-20) mg/dL Creatinine 1.1 (0.8-1.5) mg/dL Glucose 99 (75-100) mg/dL Calcium 8.6 (8.4-10.2) mg/dL Adrenal panel 03/17/19 Range/Units 05:59 Sodium 140 (137-145) mmol/L Potassium 3.6 (3.6-5.0) mmol/L Chloride 101.9 (98-107) mmol/L Carbon Dioxide 25 (22-30) mmol/L BUN 9 (9-20) mg/dL Creatinine 1.1 (0.8-1.5) mg/dL Glucose 99 (75-100) mg/dL Calcium 8.6 (8.4-10.2) mg/dL
--- NOTE | 2019-03-18 10:32 | Progress Note ---
Assessment and Plan Cultures: Blood culture 03/16/19 - NGTD Urine culture 03/16/19 - NGTD A/P: 39 yo M PMHx gout, appendiceal abscess admitted with recurrent appendicitis 1. Appendicitis with appendiceal abscess - CT abdomen and pelvis show abscesses are more multiloculated in appearance, they do not appear significantly larger than on the most recent study from 02/25/2019. Awaiting final surgical plan. Will continue IV medications through the surgery. Duration dependent on surgical outcome. Recurrence likely secondary to poor compliance with antibiotics. 2. Gout Recs: - continue Zosyn 4.5g q8h, awaiting final surgical plan Ashly Lozada NP [facility] M: [id number] O:[phone] Subjective Date of service: 03/18/19 Interval history: Patient seen and examined. Reports continued abdominal pain and discomfort, No fevers. Objective - Exam Narrative Exam: Constitutional: Alert, cooperative. Abdominal pain Head, Ears, Nose: Normocephalic, atraumatic. External ears, nose normal Eyes: Conjunctivae/corneas clear. No icterus. No ptosis. Neck: Supple, no meningeal signs Oral: dentition fair, no thrush Cardiovascular: S1, S2 normal. Respiratory: Good air entry, clear to auscultation bilaterally GI: Soft, tender RLQ; bowel sounds normal. No peritoneal signs. Musculoskeletal: No pedal edema, no cyanosis. Skin: No rash or abscess Hem/Lymphatic: No palpable cervical or supraclavicular nodes. No lymphangitis Psych: Mood ok. Affect normal Neurological: Awake, alert, oriented. No gross abnormality - Constitutional Vitals: Vital Signs Temp Pulse Resp BP Pulse Ox 98.2 F 77 18 110/69 93 03/18/19 03:48 03/18/19 03:48 03/18/19 03:48 03/18/19 03:48 03/18/19 03:48 Temperature -Last 24 Hours Temperature 98.2 F Temperature 98.7 F Temperature 97.7 F Temperature 100.7 F Temperature 98.9 F - Labs CBC & Chem 7: 03/17/19 05:59 03/17/19 05:59
--- NOTE | 2019-03-18 12:15 | Event Note ---
Date: 03/18/19 We have been asked to takeover the surgical care of this patient. I briefly came to introduce myself and get a sense of how he is feeling now. VS and labs are fairly unremarkable. CT scan stable. Will order clear liquid diet and return later to complete full consult.
--- NOTE | 2019-03-18 18:15 | Consultation ---
History of Present Illness Consult date: 03/18/19 Reason for consult: other (appendicitis) Requesting physician: TRISTIAN DORADO Chief complaint: RLQ pain - History of present illness History of present illness: 39yo M was recently admitted with a diagnosis of appendicitis with abscess. Patient was originally seen on February 21. Dr. Owens was consulted for surgery. Most likely, due to the small abscess, the decision was made to manage him with antibiotics first before surgery. Patient did not follow up as recommended and did not get his follow-up CT scan. He reports that he was discharged on February 28. He did not start his oral antibiotics until 4 days later due to lack of availability at his local pharmacy. On March 16, he returned with increased pain in the right lower quadrant. CT scans have been essentially stable with some slight change in appearance of the abscess fluid but no change in volume. Patient was not satisfied with the care of the original surgeon. Therefore, we were asked to evaluate and take over the management of this patient. Patient reports that his pain is better compared to when he first came to the hospital. It is also better compared to when he was seen in the ER 3 days ago. He has been passing gas. Denies any nausea or vomiting. He would like to eat. He has been nothing by mouth since last Monday. Past History Past Medical History: other (appendicitis, Gout) Past Surgical History: No surgical history Social history: no significant social history Family history: no significant family history Medications and Allergies Allergies Allergy/AdvReac Type Severity Reaction Status Date / Time No Known Allergies Allergy Unverified 02/21/19 12:54 Home Medications Medication Instructions Recorded Confirmed Last Taken Type Amoxicillin/Potassium Clav 1 each PO BID #28 tablet 02/26/19 03/16/19 03/15/19 22:00 Rx [Augmentin 875-125 Tablet] Ciprofloxacin HCl [Ciprofloxacin 750 mg PO BID #28 tablet 02/26/19 03/16/19 03/15/19 22:00 Rx TAB] Active Meds: Active Medications Acetaminophen (Tylenol) 650 mg MA Q4H PRN PRN Reason: Pain, Mild (1-3), fever>100.5 Last Admin: 03/17/19 18:11 Dose: 650 mg Documented by: Hydromorphone HCl (Dilaudid) 0.5 mg IV Q3H PRN PRN Reason: Pain , Severe (7-10) Last Admin: 03/17/19 19:23 Dose: 0.5 mg Documented by: Sodium Chloride (Nacl 0.9% 1000 Ml) 1,000 mls @ 75 mls/hr IV DIRECT [facility] Last Admin: 03/18/19 05:38 Dose: 75 mls/hr Documented by: Piperacillin Sod/Tazobactam Sod (Zosyn/Ns 4.5gm/100ml) 4.5 gm in 100 mls @ 200 mls/hr IV Q8H [facility]; Protocol Last Infusion: 03/18/19 11:09 Dose: Infused Documented by: Metoclopramide HCl (Reglan) 10 mg IV Q6H PRN PRN Reason: Nausea And Vomiting Last Admin: 03/17/19 19:29 Dose: 10 mg Documented by: Morphine Sulfate (Morphine) 2 mg IV Q4H PRN PRN Reason: Pain, Moderate (4-6) Ondansetron HCl (Zofran) 4 mg IV Q6H PRN PRN Reason: Nausea And Vomiting Last Admin: 03/16/19 15:29 Dose: 4 mg Documented by: Sodium Chloride (Sodium Chloride Flush Syringe 10 Ml) 10 ml IV BID [facility] Last Admin: 03/18/19 01:21 Dose: 10 ml Documented by: Sodium Chloride (Sodium Chloride Flush Syringe 10 Ml) 10 ml IV PRN PRN PRN Reason: LINE FLUSH Review of Systems - Constitutional no fever, no chills, no sweats - Cardiovascular no chest pain, no shortness of breath - Respiratory no cough - Gastrointestinal abdominal pain, no hematemesis, no coffee ground emesis, no BRBPR, no melena, no hematochezia - Genitourinary no dysuria - Integumentary no rash, no sores, no wounds Exam Vital Signs Temp Pulse Resp BP Pulse Ox 98.6 F 86 18 143/93 97 03/16/19 01:07 03/16/19 01:07 03/16/19 01:07 03/16/19 01:07 03/16/19 01:07 - General physical appearance Positive: well developed, well nourished, no distress, no pain, other (pleasant) - Eyes Positive: normal occular movement - Respiratory Positive: normal expansion, normal respiratory effort, clear to auscultation - Cardiovascular Rhythm: regular - Abdomen Abdomen: Present: soft. Absent: tender, distended, guarding, rigid, surgical scars - Integumentary no rash, no growths, no abnormal pigmentation - Neurologic Neurologic: alert and oriented to time, place and person - Psychiatric Psychiatric: appropriate mood/affect, intact judgment & insight, cooperative Results - Labs 03/17/19 05:59 03/17/19 05:59 - Imaging CT scan - abdomen: report reviewed, image reviewed CT scan - pelvis: report reviewed, image reviewed Assessment and Plan - Patient Problems (1) Acute appendicitis with appendiceal abscess Current Visit: Yes Status: Acute Plan to address problem: Pt stable. Vital signs, labs, clinical exam, etc. all looked good. Agree with antibiotic management for now. Much less risk at time of surgery if we can get the inflammation resolved. Would recommend, if possible, to do an interval appendectomy. Explained in detail to the patient who agrees with the rationale. Hopefully, the issue of nonresolution at this point is related to just poor compliance with antibiotics. Would give one more try with the antibiotics before moving forward with surgery now. We'll follow along. Please call with questions. Time=60 min
[2019-03-19] MEDS: ZOSYN/NS 4.5GM/100ML 4.5 GM/100 ML VIAL IV SCH ×3 (01:09→17:45)
[2019-03-19] MEDS: SODIUM CHLORIDE FLUSH SYRINGE 10 ML IV SCH ×4 (01:10→23:56)
[2019-03-19] MEDS: TORADOL IV SCH ×4 (06:41→23:54)
[2019-03-19] MEDS: NACL 0.9% 1000 ML 1,000 ML IV SCH ×2 (08:49→23:57)
--- NOTE | 2019-03-19 10:10 | Progress Note ---
Assessment and Plan Cultures: Blood culture 03/16/19 - NGTD Urine culture 03/16/19 - NGTD A/P: 39 yo M PMHx gout, appendiceal abscess admitted with recurrent appendicitis 1. Appendicitis with appendiceal abscess - CT abdomen and pelvis show abscesses are more multiloculated in appearance, they do not appear significantly larger than on the most recent study from 02/25/2019. Surgery on board: Wants to get inflammation resolved with antibiotics vs surgery. Risk assessment evaluated. 2. Gout Recs: - continue Zosyn 4.5g q8h while impatient -Ok to discharge home on Augmentin 875mg PO BID for additional 14 days (prescription given to the patient, family to fill prior to discharge) [facility] M: [id number] O:[phone] Subjective Date of service: 03/19/19 Interval history: Patient seen and examined. Reports no abdominal pain or generalized weakness. No fevers. Liquid diet. Objective - Exam Narrative Exam: Constitutional: Alert, cooperative. No acute distress Head, Ears, Nose: Normocephalic, atraumatic. External ears, nose normal Eyes: Conjunctivae/corneas clear. No icterus. No ptosis. Neck: Supple, no meningeal signs Oral: dentition fair, no thrush Cardiovascular: S1, S2 normal. Respiratory: Good air entry, clear to auscultation bilaterally GI: Soft, mildly tender RLQ; bowel sounds normal. No peritoneal signs. Musculoskeletal: No pedal edema, no cyanosis. Skin: No rash or abscess Hem/Lymphatic: No palpable cervical or supraclavicular nodes. No lymphangitis Psych: Mood ok. Affect normal Neurological: Awake, alert, oriented. No gross abnormality - Constitutional Vitals: Vital Signs Temp Pulse Resp BP Pulse Ox 98.0 F 74 18 120/77 94 03/19/19 07:26 03/19/19 07:26 03/19/19 07:26 03/19/19 07:26 03/19/19 07:26 Temperature -Last 24 Hours Temperature 98.0 F Temperature 98.2 F Temperature 98.3 F Temperature 98.4 F Temperature 98.4 F - Labs CBC & Chem 7: 03/17/19 05:59 03/17/19 05:59
--- NOTE | 2019-03-19 10:31 | Progress Note ---
Assessment and Plan - Patient Problems (1) Acute appendicitis with appendiceal abscess Current Visit: Yes Status: Acute Plan to address problem: Pt stable. Appears to be responding well to antibiotics. Discussed plan with ID. We will plan to give 2 more days of IV antibiotics and then consider discharge. To avoid the potential gap in antibiotic administration, we will plan to give prescription prior to discharge so that patient's family may obtain the medications before he leaves the hospital. Advanced to mechanical soft diet Time=10min Subjective Date of service: 03/19/19 Patient Reports: Positive: no new complaints, feels better, pain is less (resolved), tolerating liquids well, bowel movement. Negative: nausea, vomiting Objective Vital Signs - 12hr 03/19/19 03/19/19 03/19/19 01:03 05:33 07:26 Temperature 98.3 F 98.2 F 98.0 F Pulse Rate 78 71 74 Respiratory 18 16 18 Rate Blood Pressure 128/82 130/85 120/77 O2 Sat by Pulse 94 98 94 Oximetry - General physical appearance no distress, no pain - Respiratory normal expansion, normal respiratory effort - Abdomen soft, not tender, not distended, not guarding, not rigid - Integumentary no rash, no growths, no abnormal pigmentation - Psychiatric oriented to time, oriented to person, oriented to place, speech is normal, memory intact - Labs 03/17/19 05:59 03/17/19 05:59
--- NOTE | 2019-03-19 12:51 | Progress Note ---
Assessment and Plan Assessment and plan: Abdominal pain History of present illness: 39-year-old -[place] male with history of gout and ascites presents to [facility] ED with complaints of nausea, vomiting and abdominal pain for the past day. Patient states that he started experiencing recurrent abdominal pain yes terday morning accompanied by nausea and vomiting. The pain originates in the right lower quadrant with radiation to right upper quadrant and right lower back. He describes his pain has sharp and rates it 10/10. The pain is aggravated with movement and palpation and relieved with rest and pain medicine. Patient was recently admitted on 02/21 and treated with IV antibiotics for acute appendicitis. He was discharged on 02/26 on oral Cipro and Augmentin for 2 weeks and on 03/11. Patient was advised to have repeat CT in 2 weeks and follow-up in ID clinic in 3 weeks. Patient states that he missed 1 or 2 days of oral antibiotics. Denies: diarrhea, fever, headache, or recent sick contact CT Abd/Pelvis: Impression: Findings of acute appendicitis are again identified. Small confluent multiloculated abscesses along the distal aspect of the appendix and the appendiceal tip are present. Although the abscesses are more multiloculated in appearance, they do not appear significantly larger than on the most recent study from 02/25/2019.. Assessment and Plan Assessment and plan: 39-year-old -[place] male with history of gout and ascites presents to [facility] ED with complaints of nausea, vomiting and recurrent RLQ abdominal pain for the past day. Acute Appendicitis with abscess -GS input appreciated, cont abx, diet advanced -To avoid the potential gap in antibiotic administration, we will plan to give prescription prior to discharge so that patient's family may obtain the medications before he leaves the hospital. Hypokalemia -mild, potassium 3.4 on admission -Replaced -Continue to monitor electrolytes and replete prn DVT PPX -On Scd's Hx Gout DIspo; home tomorrow with abx Hospitalist Physical - Constitutional Vitals: Temp Pulse Resp BP Pulse Ox 98.0 F 74 18 120/77 94 03/19/19 07:26 03/19/19 07:26 03/19/19 07:26 03/19/19 07:26 03/19/19 07:26 Results - Labs CBC & Chem 7: 03/17/19 05:59 03/17/19 05:59 Labs: Laboratory Last Values WBC 7.4 K/mm3 (4.5-11.0) 03/17/19 05:59 RBC 5.07 M/mm3 (3.65-5.03) H 03/17/19 05:59 Hgb 14.0 gm/dl (11.8-15.2) 03/17/19 05:59 Hct 41.8 % (35.5-45.6) 03/17/19 05:59 MCV 82 fl (84-94) L 03/17/19 05:59 MCH 28 pg (28-32) 03/17/19 05:59 MCHC 34 % (32-34) 03/17/19 05:59 RDW 13.8 % (13.2-15.2) 03/17/19 05:59 Plt Count 213 K/mm3 (140-440) 03/17/19 05:59 Lymph % (Auto) 12.7 % (13.4-35.0) L 03/17/19 05:59 [place] % (Auto) 14.2 % (0.0-7.3) H 03/17/19 05:59 Eos % (Auto) 1.1 % (0.0-4.3) 03/17/19 05:59 Baso % (Auto) 0.4 % (0.0-1.8) 03/17/19 05:59 Lymph # 0.9 K/mm3 (1.2-5.4) L 03/17/19 05:59 [place] # 1.1 K/mm3 (0.0-0.8) H 03/17/19 05:59 Eos # 0.1 K/mm3 (0.0-0.4) 03/17/19 05:59 Baso # 0.0 K/mm3 (0.0-0.1) 03/17/19 05:59 Seg Neutrophils % 71.6 % (40.0-70.0) H 03/17/19 05:59 Seg Neutrophils # 5.3 K/mm3 (1.8-7.7) 03/17/19 05:59 PT 13.1 Sec. (12.2-14.9) 03/16/19 01:50 INR 1.02 (0.87-1.13) 03/16/19 01:50 Sodium 140 mmol/L (137-145) 03/17/19 05:59 Potassium 3.6 mmol/L (3.6-5.0) 03/17/19 05:59 Chloride 101.9 mmol/L (98-107) 03/17/19 05:59 Carbon Dioxide 25 mmol/L (22-30) 03/17/19 05:59 17 mmol/L 03/17/19 05:59 BUN 9 mg/dL (9-20) 03/17/19 05:59 1.1 mg/dL (0.8-1.5) 03/17/19 05:59 Estimated GFR > 60 ml/min 03/17/19 05:59 8 % 03/17/19 05:59 Glucose 99 mg/dL (75-100) 03/17/19 05:59 Lactic Acid 1.60 mmol/L (0.7-2.0) 03/16/19 01:50 Calcium 8.6 mg/dL (8.4-10.2) 03/17/19 05:59 Magnesium 2.20 mg/dL (1.7-2.3) 03/16/19 01:50 0.40 mg/dL (0.1-1.2) 03/16/19 01:50 < 0.2 mg/dL (0-0.2) 03/16/19 01:50 0.2 mg/dL 03/16/19 01:50 AST 23 units/L (5-40) 03/16/19 01:50 ALT 33 units/L (7-56) 03/16/19 01:50 56 units/L (35-129) 03/16/19 01:50 180 units/L (55-170) H 03/16/19 01:50 7.1 g/dL (6.3-8.2) 03/16/19 01:50 3.8 g/dL (3.9-5) L 03/16/19 01:50 1.2 % 03/16/19 01:50 17 units/L (13-60) 03/16/19 01:50 Colorless (Yellow) 03/16/19 04:38 Clear (Clear) 03/16/19 04:38 7.0 (5.0-7.0) 03/16/19 04:38 Ur Specific [place] 1.023 (1.003-1.030) 03/16/19 04:38 <15 mg/dl mg/dL (Negative) 03/16/19 04:38 Neg mg/dL (Negative) 03/16/19 04:38 Neg mg/dL (Negative) 03/16/19 04:38 Neg (Negative) 03/16/19 04:38 Neg (Negative) 03/16/19 04:38 Neg (Negative) 03/16/19 04:38 < 2.0 mg/dL (<2.0) 03/16/19 04:38 Ur Leukocyte Esterase Neg (Negative) 03/16/19 04:38 < 1.0 /HPF (0.0-6.0) 03/16/19 04:38 < 1.0 /HPF (0.0-6.0) 03/16/19 04:38 Active Medications - Current Medications Current Medications: Generic Name Dose Route Start Last Admin Trade Name Freq PRN Reason Stop Dose Admin Acetaminophen 650 mg 03/16/19 05:18 03/17/19 18:11 Tylenol ND 650 mg Q4H PRN Administration Pain, Mild (1-3), fever>100.5 Hydromorphone HCl 0.5 mg 03/16/19 05:15 03/17/19 19:23 Dilaudid IV 0.5 mg Q3H PRN Administration Pain , Severe (7-10) Sodium Chloride 1,000 mls @ 75 mls/hr 03/16/19 06:00 03/19/19 08:49 Nacl 0.9% 1000 Ml IV 75 mls/hr DIRECT [facility] Administration Piperacillin Sod/Tazobactam Sod 4.5 gm in 100 mls @ 200 mls/hr 03/16/19 10:00 03/19/19 09:15 Zosyn/Ns 4.5gm/100ml IV 200 mls/hr Q8H [facility] Administration Protocol Ketorolac Tromethamine 30 mg 03/19/19 06:00 03/19/19 12:27 Toradol IV 03/24/19 05:59 30 mg Q6HR [facility] Administration Metoclopramide HCl 10 mg 03/16/19 05:15 03/17/19 19:29 Reglan IV 10 mg Q6H PRN Administration Nausea And Vomiting Morphine Sulfate 2 mg 03/16/19 05:15 Morphine IV Q4H PRN Pain, Moderate (4-6) Ondansetron HCl 4 mg 03/16/19 05:15 03/16/19 15:29 Zofran IV 4 mg Q6H PRN Administration Nausea And Vomiting Sodium Chloride 10 ml 03/16/19 10:00 03/19/19 10:33 Sodium Chloride Flush Syringe 10 Ml IV Not Given BID [facility] Sodium Chloride 10 ml 03/16/19 05:15 Sodium Chloride Flush Syringe 10 Ml IV PRN PRN LINE FLUSH
[2019-03-20] MEDS: ZOSYN/NS 4.5GM/100ML 4.5 GM/100 ML VIAL IV SCH ×3 (02:10→19:01)
[2019-03-20] MEDS: TORADOL IV SCH ×3 (06:24→19:45)
--- NOTE | 2019-03-20 09:57 | Progress Note ---
Assessment and Plan Cultures: Blood culture 03/16/19 - NGTD Urine culture 03/16/19 - NGTD A/P: 39 yo M PMHx gout, appendiceal abscess admitted with recurrent appendicitis 1. Appendicitis with appendiceal abscess - CT abdomen and pelvis show abscesses are more multiloculated in appearance, they do not appear significantly larger than on the most recent study from 02/25/2019. Surgery on board: Wants to get inflammation resolved with antibiotics vs surgery. Risk assessment evaluated. 2. Gout Recs: - continue Zosyn 4.5g q8h while impatient -Ok to discharge home on Augmentin 875mg PO BID for additional 14 days (Prescription given to patient) ID is signing off, please call for questions. [facility] M: [id number] O:[phone] Subjective Date of service: 03/20/19 Interval history: Patient seen and examined. Reports no abdominal pain or generalized weakness. No fevers. Tolerating regular diet. Objective - Exam Narrative Exam: Constitutional: Alert, cooperative. No acute distress Head, Ears, Nose: Normocephalic, atraumatic. External ears, nose normal Eyes: Conjunctivae/corneas clear. No icterus. No ptosis. Neck: Supple, no meningeal signs Oral: dentition fair, no thrush Cardiovascular: S1, S2 normal. Respiratory: Good air entry, clear to auscultation bilaterally GI: Soft, no tenderness; bowel sounds normal. No peritoneal signs. Musculoskeletal: No pedal edema, no cyanosis. Skin: No rash or abscess Hem/Lymphatic: No palpable cervical or supraclavicular nodes. No lymphangitis Psych: Mood ok. Affect normal Neurological: Awake, alert, oriented. No gross abnormality - Constitutional Vitals: Vital Signs Temp Pulse Resp BP Pulse Ox 97.4 F L 63 16 126/81 93 03/20/19 07:21 03/20/19 07:21 03/20/19 07:21 03/20/19 07:21 03/20/19 07:21 Temperature -Last 24 Hours Temperature 97.4 F Temperature 97.8 F Temperature 97.6 F Temperature 98.0 F Temperature 98.2 F Temperature 98.1 F - Labs CBC & Chem 7: 03/17/19 05:59 03/17/19 05:59
--- NOTE | 2019-03-20 12:01 | Progress Note ---
Assessment and Plan - Patient Problems (1) Acute appendicitis with appendiceal abscess Current Visit: Yes Status: Acute Plan to address problem: Pt stable. Pt doing well. Discussed plan for 2 more days of IV Abx. Anticipate d/c on Monday. He reports that prescription for Abx was given to mother. The medication should be ready by Monday. f/u in office about 1-2 weeks after discharge. Time=10min Subjective Date of service: 03/20/19 Patient Reports: Positive: no new complaints, feels better, tolerating a regular diet, bowel movement, other (no pain now). Negative: nausea, vomiting Objective Vital Signs - 12hr 03/20/19 03/20/19 03/20/19 00:08 04:27 04:43 Temperature 97.6 F 97.8 F Pulse Rate 66 66 Respiratory 20 21 20 Rate Blood Pressure 116/84 126/85 O2 Sat by Pulse 96 94 Oximetry 03/20/19 03/20/19 07:21 11:16 Temperature 97.4 F L 98.1 F Pulse Rate 63 71 Respiratory 16 20 Rate Blood Pressure 126/81 130/88 O2 Sat by Pulse 93 94 Oximetry - General physical appearance no distress, no pain, other (looks well) - Respiratory normal expansion, normal respiratory effort - Abdomen soft, not tender, not distended - Psychiatric oriented to time, oriented to person, oriented to place, speech is normal, memory intact - Labs 03/17/19 05:59 03/17/19 05:59
[2019-03-20] MEDS: NACL 0.9% 1000 ML 1,000 ML IV SCH (13:33)
[2019-03-20] MEDS: SODIUM CHLORIDE FLUSH SYRINGE 10 ML IV SCH (13:35)
--- NOTE | 2019-03-20 15:36 | Progress Note ---
Assessment and Plan Acute Appendicitis with abscess -GS input appreciated, cont abx, diet advanced -Cont IV abx till Monday Hypokalemia -mild, potassium 3.4 on admission -Replaced -Continue to monitor electrolytes and replete prn DVT PPX -On Scd's Hx Gout Subjective Date of service: 03/20/19 Principal diagnosis: Acute appendicitis Interval history: Admitted for acute Appendicitis/Abscess Had Appendectomy and Abscess On IV abx Objective - Constitutional Vitals: Vital Signs - 12hr 03/20/19 03/20/19 03/20/19 04:27 04:43 07:21 Temperature 97.8 F 97.4 F L Pulse Rate 66 63 Respiratory 21 20 16 Rate Blood Pressure 126/85 126/81 O2 Sat by Pulse 94 93 Oximetry 03/20/19 11:16 Temperature 98.1 F Pulse Rate 71 Respiratory 20 Rate Blood Pressure 130/88 O2 Sat by Pulse 94 Oximetry General appearance: Present: no acute distress, well-nourished - EENT Eyes: PERRL, EOM intact ENT: hearing intact, clear oral mucosa Ears: bilateral: normal - Neck Neck: supple, normal ROM - Respiratory Respiratory effort: normal Respiratory: bilateral: CTA - Breasts Breasts: normal - Cardiovascular Rhythm: regular Heart Sounds: Present: S1 & S2. Absent: gallop, rub Extremities: pulses intact, No edema, normal color, Full ROM - Gastrointestinal General gastrointestinal: Present: soft, non-tender, non-distended, normal bowel sounds - Genitourinary Male genitourinary: normal - Integumentary Integumentary: clear, warm, dry - Musculoskeletal Musculoskeletal: 1, strength equal bilaterally - Neurologic Neurologic: moves all extremities - Psychiatric Psychiatric: memory intact, appropriate mood/affect, intact judgment & insight - Labs CBC & Chem 7: 03/17/19 05:59 03/17/19 05:59
[2019-03-21] MEDS: ZOSYN/NS 4.5GM/100ML 4.5 GM/100 ML VIAL IV SCH ×3 (01:29→18:48)
[2019-03-21] MEDS: TORADOL IV SCH ×5 (01:30→23:49)
[2019-03-21] MEDS: SODIUM CHLORIDE FLUSH SYRINGE 10 ML IV SCH ×3 (01:30→23:49)
--- NOTE | 2019-03-21 09:15 | Progress Note ---
Assessment and Plan - Patient Problems (1) Acute appendicitis with appendiceal abscess Current Visit: Yes Status: Acute Plan to address problem: Pt stable. Pt doing well. Anticipate d/c on Monday. He reports that prescription for Abx has been filled. I have asked Case Management to assist him with financial controller application as he is self pay. He will need this for elective surgery in the future. f/u in office about 1-2 weeks after discharge. Time=10min Subjective Date of service: 03/21/19 Patient Reports: Positive: no new complaints, tolerating a regular diet. Negative: nausea, vomiting Objective Vital Signs - 12hr 03/20/19 03/21/19 03/21/19 23:28 03:55 07:50 Temperature 98.1 F 98.4 F 98.0 F Pulse Rate 58 L 57 L 18 L Respiratory 18 18 18 Rate Blood Pressure 134/88 123/70 Blood Pressure 131/94 [Left] O2 Sat by Pulse 93 94 99 Oximetry - General physical appearance no distress, no pain, other (looks well) - Respiratory normal expansion, normal respiratory effort - Psychiatric oriented to time, oriented to person, oriented to place, speech is normal, memory intact - Labs 03/17/19 05:59 03/17/19 05:59
[2019-03-21] MEDS: NACL 0.9% 1000 ML 1,000 ML IV SCH (23:47)
[2019-03-22] MEDS: ZOSYN/NS 4.5GM/100ML 4.5 GM/100 ML VIAL IV SCH (02:30)
[2019-03-22 03:48] VITALS: BP 114/59
[2019-03-22] MEDS: TORADOL IV SCH (06:22)
--- NOTE | 2019-03-22 11:44 | Progress Note ---
Assessment and Plan Acute Appendicitis with abscess -GS input appreciated, cont abx, diet advanced -Cont IV abx till Monday Hypokalemia -mild, potassium 3.4 on admission -Replaced -Continue to monitor electrolytes and replete prn DVT PPX -On Scd's Hx Gout For discharge in AM Subjective Date of service: 03/21/19 Principal diagnosis: Acute appendicitis Interval history: Admitted for acute Appendicitis/Abscess Had Appendectomy and Abscess On IV abx Objective - Constitutional Vitals: Vital Signs - 12hr 03/21/19 03/22/19 23:53 03:24 Temperature 97.9 F 98.0 F Pulse Rate 60 69 Respiratory 18 18 Rate Blood Pressure 122/77 114/59 O2 Sat by Pulse 93 94 Oximetry General appearance: Present: no acute distress, well-nourished - EENT Eyes: PERRL, EOM intact ENT: hearing intact, clear oral mucosa Ears: bilateral: normal - Neck Neck: supple, normal ROM - Respiratory Respiratory effort: normal Respiratory: bilateral: CTA - Breasts Breasts: normal - Cardiovascular Heart rate: 78 Rhythm: regular Heart Sounds: Present: S1 & S2. Absent: gallop, rub Extremities: pulses intact, No edema, normal color, Full ROM - Gastrointestinal General gastrointestinal: Present: soft, non-tender, non-distended, normal bowel sounds - Genitourinary Male genitourinary: normal - Integumentary Integumentary: clear, warm, dry - Musculoskeletal Musculoskeletal: 1, strength equal bilaterally - Neurologic Neurologic: moves all extremities - Psychiatric Psychiatric: memory intact, appropriate mood/affect, intact judgment & insight - Labs CBC & Chem 7: 03/17/19 05:59 03/17/19 05:59
--- NOTE | 2019-03-22 11:51 | Discharge Summary ---
Providers - Providers Date of Admission: 03/16/19 07:16 Date of discharge: 03/22/19 Attending physician: GENE YUSUF 03/16/19 10:17 Consult to Physician [CONS] Routine Comment: Consulting Provider: LONNIE FAUST Physician Instructions: Reason For Exam: pt know to her. appendeceal abscess 03/16/19 10:18 Consult to Physician [CONS] Routine Comment: Consulting Provider: TRACY SENIOR Physician Instructions: Reason For Exam: appendeceal abscess pt known to him 03/18/19 09:33 Consult to Physician [CONS] Routine Comment: Consulting Provider: CLAUDINE SPEAR Physician Instructions: Reason For Exam: appendicitis 03/21/19 09:15 Consult to Case Management [CONS] Routine Services Needed at Discharge: Other Notified:: yes Was contact made?: Yes Comment:: order given to CM Additional Physician Instructions: Please assist patient with beginning financial risk manager application process. [facility] Hospital[facility] Condition: Stable Hospital course: Acute Appendicitis with abscess -GS input appreciated, cont abx, diet advanced -Cont IV abx till Monday and then oral abx Hypokalemia -mild, potassium 3.4 on admission -Replaced k=3.6 at time of discharge -Continue to monitor electrolytes and replete prn DVT PPX -On Scd's Hx Gout Disposition: DC- TO HOME OR SELFCARE Core Measure Documentation - Palliative Care Palliative Care/ Comfort Measures: Not Applicable - Core Measures Any of the following diagnoses?: none Exam - Constitutional Vitals: Temp Pulse Resp BP Pulse Ox 98.0 F 69 18 114/59 94 03/22/19 03:24 03/22/19 03:24 03/22/19 03:24 03/22/19 03:24 03/22/19 03:24 General appearance: Present: no acute distress, well-nourished - EENT Eyes: Present: PERRL ENT: hearing intact, clear oral mucosa - Neck Neck: Present: supple, normal ROM - Respiratory Respiratory effort: normal Respiratory: bilateral: CTA - Cardiovascular Heart Sounds: Present: S1 & S2. Absent: rub, click - Extremities Extremities: pulses symmetrical, No edema Peripheral Pulses: within normal limits - Abdominal General gastrointestinal: Present: soft, non-tender, non-distended, normal bowel sounds Localized gastrointestinal: tender: RLQ (Some guarding), guarding: RLQ Male genitourinary: Present: normal - Rectal Rectal Exam: deferred - Integumentary Integumentary: Present: clear, warm, dry - Musculoskeletal Musculoskeletal: gait normal, strength equal bilaterally - Psychiatric Psychiatric: appropriate mood/affect, intact judgment & insight - Neurologic Neurologic: CNII-XII intact, moves all extremities - Allied Health Allied health notes reviewed: nursing, case management Plan Follow up with: DOMINGO BERRY MD [Primary Care Provider] - 3-5 Days Prescriptions: Amoxicillin/K Clav Tab [Augmentin 875 mg] 1 tab PO Q12HR 14 Days #28 tab
== END 2019-03-22 08:00 | disposition home or self-care (01) | DRG 373 ==
LOC: ED 01:04 → SUATTDRO 05:10 → ED 05:10 → 3B-SURG 07:16
PROVIDERS: ADMIT Internal Medicine; ATTEND Internal Medicine
DX: K35.33 Acute appendicitis with perforation, localized peritonitis, and gangrene, with abscess (principal); E87.6 Hypokalemia; M10.9 Gout, unspecified; Z79.899 Other long term (current) drug therapy
CPT/HCPCS: 36415; 74177; 80048; 80076; 81001; 82140; 82550; 83690; 83735; 85025; 85610; 87040; 87086; 87116; 93005; 93010; G0378; J1170; J1885; J1956; J2405; J2543; J2765; J7030; Q9967